=== PATIENT | female | born 1950 | race Caucasian/White ===

== ENCOUNTER 2017-05-20 16:42 | Emergency (ER) | payer MEDICARE, OTHER ==
--- NOTE | 2017-05-20 17:33 | ED ---
General Adult HPI - General Chief complaint: Skin/Abscess/Foreign Body Stated complaint: Insect Bite Time Seen by Provider: 05/20/17 16:54 Source: patient, RN notes reviewed Mode of arrival: ambulatory Limitations: no limitations - History of Present Illness Initial comments: 67 yo female presents to the ER with cc of rash to the neck. Patient states that she has had this for about 2 weeks now. Patient states she simply an insect bite there before. Patient states sometimes that it hurts. Patient states that there is mild itching but not very severe. Patient states that she hasn't had any fever chills with this. Patient states he just continues to be red so she thought that she should be evaluated. Patient denies any other symptoms at this time. Patient denies any recent fever, chills, shortness of breath, chest pain, back pain, abdominal pain, nausea vomiting, numbness or tingling, dysuria or hematuria, constipation or diarrhea, headaches or visual changes, or any other current symptoms. - Related Data Home Medications Medication Instructions Recorded Confirmed Atorvastatin [Lipitor] 40 mg PO DAILY 03/30/15 03/30/15 Furosemide [Lasix] 20 mg PO DAILY 03/30/15 03/30/15 Hydrochlorothiazide [Hydrodiuril] 25 mg PO DAILY 03/30/15 03/30/15 Levothyroxine Sodium [Synthroid] 50 mcg PO DAILY 03/30/15 03/30/15 Lisinopril [Zestril] 10 mg PO DAILY 03/30/15 03/30/15 Metoprolol Succinate [Toprol XL] 25 mg PO DAILY 03/30/15 03/30/15 Previous Rx's Medication Instructions Recorded Ciprofloxacin HCl [Cipro] 500 mg PO Q12HR #20 day 03/30/15 Ondansetron Odt [Zofran ODT] 4 mg PO Q8HR PRN #15 tab 03/30/15 Cephalexin [Keflex] 500 mg PO Q6HR #40 cap 05/20/17 Allergies Allergy/AdvReac Type Severity Reaction Status Date / Time No Known Allergies Allergy Verified 03/30/15 14:53 Review of Systems ROS Statement: Those systems with pertinent positive or pertinent negative responses have been documented in the HPI. ROS Other: All systems not noted in ROS Statement are negative. Past Medical History Past Medical History: COPD, Diabetes Mellitus, Hyperlipidemia, Hypertension, Osteoarthritis (OA) Additional Past Medical History / Comment(s): osteoporosis History of Any Multi-Drug Resistant Organisms: MRSA Date of last positivie culture/infection: 2004 MDRO Source:: vaginal area Past Surgical History: Orthopedic Surgery Past Psychological History: Anxiety, Depression Smoking Status: Former smoker Past Alcohol Use History: None Reported Past Drug Use History: None Reported General Exam Limitations: no limitations General appearance: alert, in no apparent distress Head exam: Present: atraumatic, normocephalic, normal inspection ENT exam: Present: normal exam, mucous membranes moist Neck exam: Present: other (Does appear to have a red raised rash to the anterior neck with multiple areas that is circular in nature. It does hesham.) Respiratory exam: Present: normal lung sounds bilaterally. Absent: respiratory distress, wheezes, rales, rhonchi, stridor Cardiovascular Exam: Present: regular rate, normal rhythm, normal heart sounds. Absent: systolic murmur, diastolic murmur, rubs, gallop, clicks Neurological exam: Present: alert, oriented X3 Psychiatric exam: Present: normal affect, normal mood Skin exam: Present: warm, dry, intact, normal color. Absent: rash Course Vital Signs 05/20/17 17:59 Temperature 98.0 F Pulse Rate 54 L Respiratory 18 Rate Blood Pressure 124/82 O2 Sat by Pulse 98 Oximetry Medical Decision Making - Medical Decision Making 67 presents with what appears to be possibly cellulitis. Some of the patient with antibiotics. We discussed continued follow-up with her doctor we discussed return parameters and all her questions. She stated that she understood and she ER in agreement with plan. This time she will be discharged home. Disposition Clinical Impression: Cellulitis of neck Disposition: HOME SELF-CARE Condition: Stable Instructions: Cellulitis (ED) Additional Instructions: Please use medication as discussed. Please follow up with family doctor if symptoms have not improved over the next two days. Please return to the emergency room if your symptoms increase or worsen or for any other concerns. Prescriptions: Cephalexin [Keflex] 500 mg PO Q6HR #40 cap Referrals: Joan Astorga DO [Primary Care Provider] - 1-2 days
[2017-05-20 18:00] VITALS: BP 124/82; PULSE 54; RESP 18; TEMP 98
== END 2017-05-20 18:00 | disposition home or self-care (01) ==
LOC: EC 16:42
DX: S10.96XA Insect bite of unspecified part of neck, initial encounter (principal); L03.221 Cellulitis of neck; E78.5 Hyperlipidemia, unspecified; I10 Essential (primary) hypertension; Z87.891 Personal history of nicotine dependence; Z79.899 Other long term (current) drug therapy; W57.XXXA Bitten or stung by nonvenomous insect and other nonvenomous arthropods, initial encounter
CPT/HCPCS: 99282

== ENCOUNTER 2018-02-20 10:02 | Day surgery (SDC) | payer MEDICARE, OTHER ==
[2018-02-17 16:42] VITALS: BMI 40.7
[~2018-02-20 10:02] MED LIST: LACTATED RINGERS 1,000 ML IV SCH
[2018-02-20 10:54] VITALS: TEMP 98.8
[2018-02-20] MEDS ORDERED: PROPOFOL 10 MG/ML 20 ML VIAL IV ONE (11:24)
[2018-02-20] MEDS ORDERED: LIDOCAINE 1% INJ 10MG/ML (20 ML MDV) ONE (11:24)
--- NOTE | 2018-02-20 11:44 | P.PCN ---
Date of Procedure: 02/20/18 Procedure(s) Performed: BRIEF HISTORY: Patient is a 68-year-old pleasant female, scheduled for an elective colonoscopy as a part of variation of change in bowel habits for the last several months duration. PROCEDURE PERFORMED: Colonoscopy. PREOPERATIVE DIAGNOSIS: Change in bowel habits. IV sedation per Anesthesia. PROCEDURE: After informed consent was obtained, the patient, was brought into the endoscopy unit. IV sedation was administered by Anesthesia under continuous monitoring. Digital rectal examination was normal. Initially the Olympus CF- 160 flexible video colonoscope was then inserted in the rectum, gradually advanced into the cecum without any difficulty. Careful examination was performed as the scope was gradually being withdrawn. Ileocecal valve and the appendiceal orifice were visualized and appeared normal. Prep was excellent. Mucosa of the cecum, ascending colon, transverse colon, descending colon, sigmoid colon, and rectum appeared normal. Scattered sigmoid diverticulosis seen. Retroflexion was performed in the rectum and no lesions were seen. The patient tolerated the procedure well. IMPRESSION: Normal-appearing colon from rectum to cecum with no evidence of colorectal neoplasia. Scattered sigmoid diverticulosis.. RECOMMENDATIONS: Findings of this examination were discussed with the patient as well as a family. She was advised to have a repeat screening colonoscopy in 10 years.
[2018-02-20 11:49] VITALS: RESP 16
[2018-02-20 12:05] VITALS: BP 142/51; PULSE 57
== END 2018-02-20 12:24 | disposition home or self-care (01) ==
LOC: ORWHC2ENDO 10:02
PROVIDERS: ATTEND Internal Medicine Gastroenterology
DX: K57.30 Diverticulosis of large intestine without perforation or abscess without bleeding (principal); I10 Essential (primary) hypertension; J44.9 Chronic obstructive pulmonary disease, unspecified; E07.9 Disorder of thyroid, unspecified; K21.9 Gastro-esophageal reflux disease without esophagitis; M19.90 Unspecified osteoarthritis, unspecified site; M81.0 Age-related osteoporosis without current pathological fracture; Z79.890 Hormone replacement therapy; Z79.899 Other long term (current) drug therapy; Z87.891 Personal history of nicotine dependence
CPT/HCPCS: 45378

== ENCOUNTER → 2021-04-10 | Outpatient (CLI) | payer MEDICARE, OTHER ==
[2021-04-10 19:21] LABS: African American GFR (CKD) 64.7 (60.0-200.0); Anion Gap 9.5 mmol/L (4.00-12.00); Calcium 9.3 mg/dL (8.7-10.3); Carbon Dioxide 31.5 mmol/L (21.6-31.8); Non-African American GFR(CKD) 55.8 (60.0-200.0); Potassium 5.4 mmol/L (3.5-5.5)
== END | disposition home or self-care (01) ==
LOC: LABWHC1 14:15
PROVIDERS: ATTEND Internal Medicine Interventional Cardiology
DX: R60.9 Edema, unspecified (principal)
CPT/HCPCS: 36415; 80048

== ENCOUNTER → 2022-10-22 | Outpatient (CLI) | payer MEDICARE, OTHER ==
--- NOTE | 2022-10-23 18:00 | MM ---
Reason for Exam: Screening (asymptomatic). Last mammogram was performed 1 year(s) and 4 month(s) ago. Patient History: Menarche at age 10. First Full-Term at age 18. Postmenopausal. Risk Values: Suzi 5 year model risk: 1.6%. NCI Lifetime model risk: 3.7%. Prior Study Comparison: 06/21/2021 Bilateral MG 3D screening mammo w/cad, [facility]. Tissue Density: The breast tissue is almost entirely fat. Findings: Analyzed By CAD. There is no suspicious group of microcalcifications or new suspicious mass in either breast. Overall Assessment: Negative, BI-RAD 1 Management: Screening Mammogram of both breasts in 1 year. 1. Patient should continue monthly self breast exams. 2. A clinical breast exam by your physician is recommended on an annual basis. 3. This exam should not preclude additional follow-up of suspicious palpable abnormalities. Electronically signed and approved by: Kathy Flanagan M.D. Radiologist
== END | disposition home or self-care (01) ==
LOC: RADMAMWWP 14:32
PROVIDERS: ATTEND Obstetrics & Gynecology
DX: Z12.31 Encounter for screening mammogram for malignant neoplasm of breast (principal); Z78.0 Asymptomatic menopausal state
CPT/HCPCS: 77063; 77067

== ENCOUNTER 2023-02-08 10:19 | Day surgery (SDC) | payer MEDICARE, OTHER ==
[2023-02-06 12:00] VITALS: BMI 42.5
[~2023-02-08 10:19] MED LIST changes: +LIDOCAINE 1% (10MG/ML) FOR IV START INTRADERMA PRN
[2023-02-08 10:55] VITALS: TEMP 97
[2023-02-08] MEDS ORDERED: LIDOCAINE 2% INJ 20 MG/ML (2 ML VIAL) ONE (11:45)
[2023-02-08] MEDS ORDERED: PROPOFOL 10 MG/ML 20 ML VIAL IV ONE (11:45)
--- NOTE | 2023-02-08 11:56 | P.PCN ---
Date of Procedure: 02/08/23 Procedure(s) Performed: BRIEF HISTORY: Patient is a 73-year-old, pleasant, white female scheduled for an upper endoscopy as a part of evaluation of intermittent dysphagia to solids for the last 1 year duration. She has 4 episodes so for and esophagus are Nexium 20 mg daily and since then the symptoms are significantly improved.. PROCEDURE PERFORMED: Esophagogastroduodenoscopy with biopsy. PREOPERATIVE DIAGNOSIS: Intermittent dysphagia to solids. IV sedation per anesthesia. PROCEDURE: After informed consent was obtained, the patient was brought into the endoscopy unit. IV sedation was administered by Anesthesia under continuous monitoring. Initially the Olympus GIF-140 video endoscope was inserted into the mouth. Esophagus intubated without any difficulty. It was gradually advanced into the stomach and duodenum and carefully examined. The bulb and the second part of the duodenum appeared normal. The scope at this time was withdrawn to the stomach, adequately insufflated with air, and upon careful examination, mucosa of the antrum, had linear areas of erythema consistent with gastritis and biopsies were done from this area. Mucosa of the body, cardia and the fundus appeared normal. The scope was then withdrawn into the esophagus. The GE junction was located at 39 cm from the incisors. Small sliding-type well hernia noted. The esophagus appeared normal. There were no erosions or ulcerations seen and the patient tolerated the procedure well. IMPRESSION: 1. Normal-appearing esophagus with no evidence of esophagitis or esophageal stricture. 2. Small hiatal hernia and mild antral gastritis. RECOMMENDATIONS: The findings of this examination were discussed with the patie nt as well as her family. She was advised to follow with the biopsy results. She will continue with Nexium 20 mg daily and follow antrum reflux measures..
[2023-02-08 12:47] VITALS: BP 154/77; PULSE 47; RESP 18
== END 2023-02-08 12:45 | disposition home or self-care (01) ==
LOC: ORWHC2ENDO 10:19
PROVIDERS: ATTEND Internal Medicine Gastroenterology
DX: K29.50 Unspecified chronic gastritis without bleeding (principal); K44.9 Diaphragmatic hernia without obstruction or gangrene; E78.5 Hyperlipidemia, unspecified; I11.0 Hypertensive heart disease with heart failure; I50.9 Heart failure, unspecified; J44.9 Chronic obstructive pulmonary disease, unspecified; G47.33 Obstructive sleep apnea (adult) (pediatric); E03.9 Hypothyroidism, unspecified; K21.9 Gastro-esophageal reflux disease without esophagitis; R73.03 Prediabetes; Z79.899 Other long term (current) drug therapy; Z79.891 Long term (current) use of opiate analgesic
CPT/HCPCS: 88305; 43239; J2704; J2001

== ENCOUNTER 2023-07-21 10:10 | Observation (INO) | payer MEDICARE, OTHER ==
[2023-07-21 11:30] LABS: Basophils % (A) 0 %; Eosinophils # (A) 0.2 k/uL (0-0.7); Eosinophils % (A) 2 %; HCT 41.8 % (34.0-46.0); HGB 13.5 gm/dL (11.4-16.0); Hypochromasia Slight; Lymphocytes # (A) 2.1 k/uL (1.0-4.8); Lymphocytes % (A) 23 %; MCH 29.4 pg (25.0-35.0); MCHC 32.2 g/dL (31.0-37.0); MCV 91.4 fL (80.0-100.0); Mean Platelet Volume 11.6; Monocytes # (A) 0.5 k/uL (0-1.0); Monocytes % (A) 5 %; Neutrophils % (A) 67 %; Platelet Count 157 k/uL (150-450); RBC 4.58 m/uL (3.80-5.40); RDW 14.1 % (11.5-15.5); WBC 9.1 k/uL (3.8-10.6)
[2023-07-21 11:47] LABS: African American GFR (CKD) >90 (>60 ml/min/1.73 sqM); Anion Gap 5 mmol/L; Blood Urea Nitrogen 15 mg/dL (7-17); Carbon Dioxide 28 mmol/L (22-30); Chloride 108 mmol/L (98-107); Glucose 97 mg/dL (74-99); Non-African American GFR(CKD) 84 (>60 ml/min/1.73 sqM); Potassium 4.5 mmol/L (3.5-5.1); Sodium 141 mmol/L (137-145)
[2023-07-21 11:48] LABS: INR 0.9 (<1.2); Partial Thromboplastin Time 22.3 sec (22.0-30.0); Prothrombin Time 9.6 sec (9.0-12.0)
[2023-07-21 11:54] LABS: NT-Pro-B-Type Natriuretic Pept 1310 pg/mL
--- NOTE | 2023-07-21 12:10 | XR ---
EXAMINATION TYPE: XR chest 2V DATE OF EXAM: 07/21/2023 11:53 AM COMPARISON: None TECHNIQUE: XR chest 2V Frontal and lateral views of the chest. CLINICAL INDICATION:Female, 73 years old with history of dyspnea; FINDINGS: Lungs/Pleura: There is no evidence of pleural effusion, focal consolidation, or pneumothorax. Pulmonary vascularity: Mild pulmonary vascular congestion. Heart/mediastinum: Cardiomediastinal silhouette is enlarged. Musculoskeletal: Multiple level degenerative disc disease changes seen throughout the spine. IMPRESSION: Cardiomegaly and mild pulmonary vascular congestion. Correlate with BNP for congestive heart failure.
--- NOTE | 2023-07-21 12:29 | ED ---
General Adult HPI - General Chief complaint: Shortness of Breath Stated complaint: DENIS Time Seen by Provider: 07/21/23 10:20 Source: patient Mode of arrival: ambulatory Limitations: no limitations - History of Present Illness Initial comments: Dictation was produced using [employer] dictation software. please excuse any grammatical, word or spelling errors. Chief Complaint: 73-year-old female with dyspnea History of Present Illness: 73-year-old female she was recently diagnosed with cellulitis. She went to go see Dr. Acosta who prescribed her 3 times a day dosing of Keflex. She completed the Keflex. States that at around day 7 out 10 she started to develop dyspnea. States that the dizziness is intermittent. Denies any cough. Denies any chest pain. No history of asthma or COPD. She does have a history of heart failure. It has a fever constitutional symptoms. The ROS documented in this emergency department record has been reviewed and confirmed by me. Those systems with pertinent positive or negative responses joseph ve been documented in the HPI. All other systems are other negative and/or noncontributory. - Related Data Home Medications Medication Instructions Recorded Confirmed Atorvastatin [Lipitor] 40 mg PO DAILY 03/30/15 02/08/23 Levothyroxine Sodium [Synthroid] 75 mcg PO QAM 03/30/15 02/08/23 lisinopriL [Zestril] 10 mg PO QAM 03/30/15 02/08/23 Cyclobenzaprine [Flexeril] 10 mg PO HS PRN 02/17/18 02/08/23 Metoprolol Tartrate [Lopressor] 25 mg PO QAM 02/17/18 02/08/23 Cetirizine HCl [Zyrtec] 10 mg PO DAILY 02/06/23 02/08/23 Esomeprazole Magnesium [NexIUM 20 mg PO DAILY 02/06/23 02/08/23 24Hr] Loperamide [Imodium] 2 mg PO Q2D 02/06/23 02/08/23 Allergies Allergy/AdvReac Type Severity Reaction Status Date / Time No Known Allergies Allergy Verified 07/21/23 10:15 Review of Systems ROS Statement: Those systems with pertinent positive or pertinent negative responses have been documented in the HPI. ROS Other: All systems not noted in ROS Statement are negative. Past Medical History Past Medical History: Heart Failure, COPD, GERD/Reflux, Hyperlipidemia, Hypertension, Osteoarthritis (OA), Thyroid Disorder Additional Past Medical History / Comment(s): Osteoporosis, FEELS LIKE FOOD IS GETTING STUCK AND IT MAKES IT HARD TO BREATHE, SEASONAL ALLERGIES, N/V History of Any Multi-Drug Resistant Organisms: None Reported Date of last positivie culture/infection: 2004 MDRO Source:: vaginal area Past Surgical History: Joint Replacement Additional Past Surgical History / Comment(s): rt knee replacement, COLONOSCOPY, Past Anesthesia/Blood Transfusion Reactions: No Reported Reaction Past Psychological History: Anxiety, Depression Smoking Status: Former smoker Past Alcohol Use History: None Reported Past Drug Use History: None Reported - Past Family History Mother Family Medical History: No Reported History General Exam - General Exam Comments Initial Comments: PHYSICAL EXAM: General Impression: Alert and oriented x3, not in acute distress HEENT: Normocephalic atraumatic, extra-ocular movements intact, pupils equal and reactive to light bilaterally, mucous membranes moist. Cardiovascular: Heart regular rate and rhythm Chest: Able to complete full sentences, no retractions, no tachypnea, clear to auscultation bilaterally Abdomen: abdomen soft, non-tender, non-distended, no organomegaly Musculoskeletal: Pulses present and equal in all extremities, no peripheral rochelle ma Motor: no focal deficits noted Neurological: CN II-XII grossly intact, no focal motor or sensory deficits noted Skin: Intact with no visualized rashes Psych: Normal affect and mood Limitations: no limitations Course Vital Signs 07/21/23 07/21/23 07/21/23 10:13 10:42 11:00 Temperature 98.5 F Pulse Rate 62 55 L 79 Respiratory 32 H 24 20 Rate Blood Pressure 169/92 186/94 O2 Sat by Pulse 98 96 95 Oximetry 07/21/23 07/21/23 07/21/23 11:30 12:00 12:30 Temperature Pulse Rate 63 54 L 51 L Respiratory 15 18 18 Rate Blood Pressure 204/100 184/94 178/86 O2 Sat by Pulse 93 L 94 L 94 L Oximetry 07/21/23 13:00 Temperature Pulse Rate Respiratory Rate Blood Pressure 171/95 O2 Sat by Pulse Oximetry EKG Findings - EKG Comments: EKG Findings:: My EKG interpretation: Ventricular rate 56, sinus bradycardia,. 143, QRS 180, QTc 452. No AL prolongation, no QTC prolongation, no ST or T-wave changes noted. No old EKG for comparison. Overall, this EKG is unremarkable Medical Decision Making - Medical Decision Making Was pt. sent in by a medical professional or institution (SILVINO Jung, SHOT CORE DRILL OPERATOR, urgent care, hospital, or care home...) When possible be specific @ -No Did you speak to anyone other than the patient for history (EMS, parent, family, police, friend...)? What history was obtained from this source @ -No Did you review nursing and triage notes (agree or disagree)? Why? @ -I reviewed and agree with nursing and triage notes Were old charts reviewed (outside hosp., previous admission, EMS record, old EKG, old radiological studies, urgent care reports/EKG's, care home records)? Report findings @ -No old charts were reviewed Differential Diagnosis (chest pain, altered mental status, abdominal pain women, abdominal pain men, vaginal bleeding, musculoskeletal, weakness, fever, dyspnea, syncope, headache, dizziness, GI bleed, back pain, seizure, CVA, palpatations, mental health)? @ -Differential Dyspnea: Coronary syndrome, arrhythmia, tamponade, asthma, COPD, pulmonary embolism, pneumonia, pneumothorax, pulmonary effusion, anaphylaxis, diabetic ketoacidosis, flailed chest, pulmonary contusion, diaphragmatic rupture, anemia, neuromuscular, this is not meant to be an all-inclusive list. EKG interpreted by me (3pts min.). @ -As above X-rays interpreted by me (1pt min.). @ -Chest x-ray shows pulmonary vascular congestion CT interpreted by me (1pt min.). @ -Computed tomography scan of the chest with angiography shows no pulmonary embolism U/S interpreted by me (1pt. min.). @ -None done What testing was considered but not performed or refused? (CT, X-rays, U/S, labs)? Why? @ -None What meds were considered but not given or refused? Why? @ -None Did you discuss the management of the patient with other professionals (professionals i.e. SILVINO Jung, SHOT CORE DRILL OPERATOR, lab, RT, psych nurse, social services technician, plating equipment tender, teacher, [place] police officer, rehabilitation caseworker)? Give summary @ -Discussed with hospitalist for admission Was smoking cessation discussed for >3mins.? @ -No Was critical care preformed (if so, how long)? @ -No Were there social determinants of health that impacted care today? How? (Homelessness, low income, unemployed, alcoholism, drug addiction, transportatio n, low edu. Level, literacy, decrease access to med. care, detention, rehab)? @ -No Was there de-escalation of care discussed even if they declined (Discuss DNR or withdrawal of care, Hospice)? DNR status @ -No What co-morbidities impacted this encounter? (DM, HTN, Smoking, COPD, CAD, Cancer, CVA, ARF, Chemo, Hep., AIDS, mental health diagnosis, sleep apnea, morbid obesity)? @ -None Was patient admitted / discharged? Hospital course, mention meds given and route, prescriptions, significant lab abnormalities, going to OR and other pertinent info. @ -73-year-old female presents to the emergency department for dyspnea. Vital signs upon arrival are within acceptable limits. Patient believes that her symptoms are secondary to Keflex use. Patient not showing signs of respiratory distress. Laboratory evaluation obtained. D-dimer elevated 0.05. No pulmonary embolism seen on imaging. Labs otherwise within acceptable limits. Brain natruretic peptide elevated. Imaging studies to suggest that patient having signs of heart failure. Patient reevaluated at bedside at 150. She is within stable medical condition. Patient given Lasix. She will be admitted to observation with cardiology consultation. Undiagnosed new problem with uncertain prognosis? @ -No Drug Therapy requiring intensive monitoring for toxicity (Heparin, Nitro, Insulin, Cardizem)? @ -No Were any procedures done? @ -No Diagnosis/symptom? Acute, or Chronic, or Acute on Chronic? Uncomplicated (without systemic symptoms) or Complicated (systemic symptoms)? @ -Heart failure Side effects of treatment? @ -No Exacerbation, Progression, or Severe Exacerbation? @ -No Poses a threat to life or bodily function? How? (Chest pain, [place], [place], pneumonia, PE, COPD, DKA, ARF, appy, cholecystitis, CVA, Diverticulitis, Homicidal, Suicidal, threat to staff... and all critical care pts) @ -yes - Lab Data Result diagrams: 07/21/23 11:18 07/21/23 11:18 Lab Results 07/21/23 07/21/23 07/21/23 Range/Units 11:18 11:18 11:18 WBC 9.1 (3.8-10.6) k/uL RBC 4.58 (3.80-5.40) m/uL Hgb 13.5 (11.4-16.0) gm/dL Hct 41.8 (34.0-46.0) % MCV 91.4 (80.0-100.0) fL MCH 29.4 (25.0-35.0) pg MCHC 32.2 (31.0-37.0) g/dL RDW 14.1 (11.5-15.5) % Plt Count 157 (150-450) k/uL MPV 11.6 Neutrophils % 67 % Lymphocytes % 23 % Monocytes % 5 % Eosinophils % 2 % Basophils % 0 % Neutrophils # 6.0 (1.3-7.7) k/uL Lymphocytes # 2.1 (1.0-4.8) k/uL Monocytes # 0.5 (0-1.0) k/uL Eosinophils # 0.2 (0-0.7) k/uL Basophils # 0.0 (0-0.2) k/uL Hypochromasia Slight PT 9.6 (9.0-12.0) sec INR 0.9 (<1.2) APTT 22.3 (22.0-30.0) sec D-Dimer 2.05 H (<0.60) mg/L FEU Sodium 141 (137-145) mmol/L Potassium 4.5 (3.5-5.1) mmol/L Chloride 108 H (98-107) mmol/L Carbon Dioxide 28 (22-30) mmol/L Anion Gap 5 mmol/L BUN 15 (7-17) mg/dL Creatinine 0.71 (0.52-1.04) mg/dL Est GFR (CKD-EPI)AfAm >90 (>60 ml/min/1.73 sqM) Est GFR (CKD-EPI)NonAf 84 (>60 ml/min/1.73 sqM) Glucose 97 (74-99) mg/dL Plasma Lactic Acid Yasmany (0.7-2.0) mmol/L Calcium 9.0 (8.4-10.2) mg/dL Troponin I (0.000-0.034) ng/mL NT-Pro-B Natriuret Pep 1310 pg/mL Influenza Type A (PCR) (Not Detectd) Influenza Type B (PCR) (Not Detectd) RSV (PCR) (Not Detectd) SARS-CoV-2 (PCR) (Not Detectd) 07/21/23 07/21/23 07/21/23 Range/Units 11:18 11:18 11:28 WBC (3.8-10.6) k/uL RBC (3.80-5.40) m/uL Hgb (11.4-16.0) gm/dL Hct (34.0-46.0) % MCV (80.0-100.0) fL MCH (25.0-35.0) pg MCHC (31.0-37.0) g/dL RDW (11.5-15.5) % Plt Count (150-450) k/uL MPV Neutrophils % % Lymphocytes % % Monocytes % % Eosinophils % % Basophils % % Neutrophils # (1.3-7.7) k/uL Lymphocytes # (1.0-4.8) k/uL Monocytes # (0-1.0) k/uL Eosinophils # (0-0.7) k/uL Basophils # (0-0.2) k/uL Hypochromasia PT (9.0-12.0) sec INR (<1.2) APTT (22.0-30.0) sec D-Dimer (<0.60) mg/L FEU Sodium (137-145) mmol/L Potassium (3.5-5.1) mmol/L Chloride (98-107) mmol/L Carbon Dioxide (22-30) mmol/L Anion Gap mmol/L BUN (7-17) mg/dL Creatinine (0.52-1.04) mg/dL Est GFR (CKD-EPI)AfAm (>60 ml/min/1.73 sqM) Est GFR (CKD-EPI)NonAf (>60 ml/min/1.73 sqM) Glucose (74-99) mg/dL Plasma Lactic Acid Yasmany 2.3 H* (0.7-2.0) mmol/L Calcium (8.4-10.2) mg/dL Troponin I <0.012 (0.000-0.034) ng/mL NT-Pro-B Natriuret Pep pg/mL Influenza Type A (PCR) Not Detected (Not Detectd) Influenza Type B (PCR) Not Detected (Not Detectd) RSV (PCR) Not Detected (Not Detectd) SARS-CoV-2 (PCR) Not Detected (Not Detectd) Disposition Clinical Impression: Heart failure Disposition: ADMITTED IP TO THIS HOSP Condition: Fair Referrals: Joan Astorga DO [Primary Care Provider] - 1-2 days Decision Time: 13:52
--- NOTE | 2023-07-21 13:19 | CT ---
EXAMINATION TYPE: CT angio chest CT DLP: 799 mGycm, Automated exposure control for dose reduction was used. DATE OF EXAM: 07/21/2023 1:10 PM COMPARISON: CT chest 04/05/2011, chest radiograph 07/21/2023 CLINICAL INDICATION:Female, 73 years old with history of positive dimer; Difficulty breathing. TECHNIQUE/CONTRAST: CTA scan of the thorax is performed with IV Contrast, patient injected with 73ml mL of Isovue 370, pu lmonary embolism protocol. MIP images are created and reviewed. FINDINGS: Pulmonary Artery: There is no evidence for a filling defect within the pulmonary vasculature to sugge st acute pulmonary embolism. The pulmonary artery is of normal size. Lungs/Pleura: No pneumothorax. Trace bilateral pleural effusions. Subtle bilateral lower lobe groundg lass opacities. Intralobular septal thickening demonstrated in the bilateral lower lobes. No focal co nsolidation. Airway: Large airways are patent. Heart: Mildly enlarged. No pericardial effusion. Mild coronary arterial calcifications. Vasculature: No evidence of aortic aneurysm. Mediastinum: Few mildly prominent mediastinal lymph nodes. Musculoskeletal: Mild degenerative disc disease changes are present throughout the thoracolumbar spin e. Findings compatible with DISH. No acute osseous abnormality. Soft Tissues: Unremarkable. Lower neck: No significant findings. Upper Abdomen: Small hiatal hernia. IMPRESSION: 1. No evidence of pulmonary embolism. 2. Trace bilateral pleural effusions with cardiomegaly and interlobular thickening suggesting CHF exa cerbation. 3. Subtle bilateral lower lobe groundglass opacities likely representing minimal pulmonary edema vers us less likely atypical pneumonia.
[2023-07-21] MEDS ORDERED: NALOXONE 0.4 MG/ML 1 ML VIAL IV PRN (13:48)
[2023-07-21] MEDS ORDERED: FUROSEMIDE 10 MG/ML 4 ML VIAL IV STA (13:49)
[2023-07-21] MEDS ORDERED: ACETAMINOPHEN TAB 500 MG TAB PO PRN (16:05)
[2023-07-21] MEDS: SODIUM CHLORIDE 0.9% 1,000 ML IV SCH (16:08)
[2023-07-21] MEDS: lisinopriL 10 MG TAB PO SCH (16:47)
[2023-07-21] MEDS: LEVOTHYROXINE 75 MCG TAB PO SCH (16:47)
[2023-07-21] MEDS: METOPROLOL TARTRATE 25 MG TAB PO SCH (21:43)
[2023-07-22] MEDS: LEVOTHYROXINE 75 MCG TAB PO SCH (06:20)
[2023-07-22] MEDS: LORATADINE 10 MG TAB PO SCH (08:21)
[2023-07-22] MEDS: lisinopriL 10 MG TAB PO SCH ×2 (08:53→20:35)
[2023-07-22] MEDS: ATORVASTATIN 40 MG TAB PO SCH (08:53)
--- NOTE | 2023-07-22 09:32 | P.CRDCN ---
History of Present Illness Consult date: 07/22/23 Requesting physician: Meggan Almazan Reason for Consult (text): suspect heart failure Chief complaint: shortness of breath History of present illness: This is a pleasant 73-year-old female patient who previously followed with Dr. VC Wells and most recently with Dr. Broderick however has not been seen recently. She has a history of hypertension, prior history of heart failure that she said was told to be due to hypertension and cardiac catheterization done about 14 years ago at which time she was told to have no CAD according to the patient. She has chronic venous stasis and chronic lower extremity edema she's been following with Dr. Acosta in this regard. Recently treated for right lower leg cellulitis. She's recently been under an increased amount of stress due to the of her 10-year-old grandson. On July 08 she began noticing episodes of dyspnea on exertion and shortness of breath when she was feeling more stressed. Since that time the episodes have been progressively more frequent. She woke up yesterday morning at about 5 AM and was unable to catch her breath. She had her bring her to the emergency department. Chest x-ray showed cardiomegaly and mild pulmonary vascular congestion, correlate with BNP for congestive heart failure. D-dimer was elevated and a CT was done of the chest that showed no evidence for PE. She was given one dose of IV Lasix. NT proBNP was 1310 which could be underestimated due to patient's weight. Upon examination she is sitting up at the side of the bed. She is overall feeling better but continues to have some difficulty breathing when she is feeling anxious. Continues to have lower extremity edema, mild. Denies any chest discomfort, palpitations or dizziness. She was having some mild orthopnea at home. She is currently on metoprolol 25 mg by mouth twice a day as a home medication however she's been bradycardic with heart rate in the low 40s. Past Medical History Past Medical History: Heart Failure, COPD, GERD/Reflux, Hyperlipidemia, Hypertension, Osteoarthritis (OA), Thyroid Disorder Additional Past Medical History / Comment(s): Osteoporosis, FEELS LIKE FOOD IS GETTING STUCK AND IT MAKES IT HARD TO BREATHE, SEASONAL ALLERGIES, N/V History of Any Multi-Drug Resistant Organisms: None Reported Date of last positivie culture/infection: 2004 MDRO Source:: vaginal area Past Surgical History: Joint Replacement Additional Past Surgical History / Comment(s): rt knee replacement, COLONOSCOPY, Past Anesthesia/Blood Transfusion Reactions: No Reported Reaction Past Psychological History: Anxiety, Depression Smoking Status: Former smoker Past Alcohol Use History: None Reported Additional Past Alcohol Use History / Comment(s): quit smoking April,smoked 35 yrs 1-2ppd Past Drug Use History: None Reported - Past Family History Mother Family Medical History: No Reported History Medications and Allergies Home Medications Medication Instructions Recorded Confirmed Type Atorvastatin [Lipitor] 40 mg PO DAILY 03/30/15 07/21/23 History Levothyroxine Sodium [Synthroid] 75 mcg PO DAILY 03/30/15 07/21/23 History lisinopriL [Zestril] 10 mg PO DAILY 03/30/15 07/21/23 History Metoprolol Tartrate [Lopressor] 25 mg PO BID 02/17/18 07/21/23 History Cetirizine HCl [Zyrtec] 10 mg PO DAILY 02/06/23 07/21/23 History Acetaminophen [Tylenol Arthritis] 1,300 mg PO Q6H PRN 07/21/23 07/21/23 History Allergies Allergy/AdvReac Type Severity Reaction Status Date / Time No Known Allergies Allergy Verified 07/21/23 13:57 Physical Exam Vitals: Vital Signs Temp Pulse Pulse Resp BP BP Pulse Ox 07/22/23 07:00 97.9 F 43 L 20 158/75 95 07/22/23 01:27 98.5 F 54 L 16 146/69 95 07/21/23 19:14 97.8 F 58 L 16 162/69 96 07/21/23 16:32 98.3 F 52 L 16 152/67 96 07/21/23 15:04 52 L 18 154/84 94 L 07/21/23 14:30 57 L 20 189/90 98 07/21/23 14:00 58 L 12 181/96 98 07/21/23 13:00 171/95 07/21/23 12:30 51 L 18 178/86 94 L 07/21/23 12:00 54 L 18 184/94 94 L 07/21/23 11:30 63 15 204/100 93 L 07/21/23 11:00 79 20 186/94 95 07/21/23 10:42 55 L 24 96 07/21/23 10:13 98.5 F 62 32 H 169/92 98 Intake and Output 07/21/23 07/22/23 07/22/23 22:59 06:59 14:59 Intake Total 591 Balance 591 Intake: Oral 591 Other: # Voids 2 1 PHYSICAL EXAMINATION: This is a 73-year-old female in no apparent distress at the time of my examination. HEENT: Head is atraumatic, normocephalic. Pupils are equal, round. Sclerae anicteric. Conjunctivae are clear. Mucous membranes of the mouth are moist. Neck is supple. There is no elevated jugular venous pressure. No carotid bruit is heard. CHEST EXAMINATION: Clear to auscultation bilaterally. No wheezes rales or rhonchi. Respirations even and nonlabored. HEART EXAMINATION: Heart regular, positive S1 and S2. No S3. No S4. No clicks, rubs or murmurs. ABDOMEN: Soft, obese, nontender. Bowel sounds are heard. No organomegaly noted. EXTREMITIES: 2+ peripheral pulses with evidence of 1+ peripheral edema and chronic skin changes noted on the right lower extremity and no calf tenderness noted. NEUROLOGIC EXAMINATION: Patient is awake, alert and oriented x3. Results 07/22/23 12:35 07/21/23 11:18 Cardiac Enzymes 07/21/23 Range/Units 11:18 Troponin I <0.012 (0.000-0.034) ng/mL Coagulation 07/21/23 Range/Units 11:18 PT 9.6 (9.0-12.0) sec APTT 22.3 (22.0-30.0) sec CBC 07/21/23 Range/Units 11:18 WBC 9.1 (3.8-10.6) k/uL RBC 4.58 (3.80-5.40) m/uL Hgb 13.5 (11.4-16.0) gm/dL Hct 41.8 (34.0-46.0) % Plt Count 157 (150-450) k/uL Comprehensive Metabolic Panel 07/21/23 Range/Units 11:18 Sodium 141 (137-145) mmol/L Potassium 4.5 (3.5-5.1) mmol/L Chloride 108 H (98-107) mmol/L Carbon Dioxide 28 (22-30) mmol/L BUN 15 (7-17) mg/dL Creatinine 0.71 (0.52-1.04) mg/dL Glucose 97 (74-99) mg/dL Calcium 9.0 (8.4-10.2) mg/dL Current Medications Generic Name Dose Route Start Last Admin Trade Name Freq PRN Reason Stop Dose Admin Acetaminophen 1,000 mg 07/21/23 16:05 Acetaminophen Tab 500 Mg Tab PO Q6H PRN Fever and/ or Pain Atorvastatin Calcium 40 mg 07/22/23 09:00 07/22/23 08:53 Atorvastatin 40 Mg Tab PO 40 mg DAILY AHMET Administration Sodium Chloride 1,000 mls @ 20 mls/hr 07/21/23 14:00 07/21/23 16:08 Saline 0.9% IV Not Given .Q24H AHMET Levothyroxine Sodium 75 mcg 07/21/23 16:15 07/22/23 06:20 Levothyroxine 75 Mcg Tab PO 75 mcg 0630 AHMET Administration Lisinopril 10 mg 07/21/23 16:15 07/22/23 08:53 Lisinopril 10 Mg Tab PO 10 mg DAILY AHMET Administration Loratadine 10 mg 07/22/23 09:00 07/22/23 08:21 Loratadine 10 Mg Tab PO Not Given DAILY AHMET Metoprolol Tartrate 25 mg 07/21/23 21:00 07/21/23 21:43 Metoprolol Tartrate 25 Mg Tab PO 25 mg BID AHMET Administration Naloxone HCl 0.2 mg 07/21/23 13:48 Naloxone 0.4 Mg/Ml 1 Ml Vial IV Q2M PRN Opioid Reversal Intake and Output 07/21/23 07/22/23 07/22/23 22:59 06:59 14:59 Intake Total 591 Balance 591 Intake: Oral 591 Other: # Voids 2 1 07/21/23 11:18 07/21/23 11:18 Assessment and Plan Assessment: #1 symptom for progressively worsening dyspnea on exertion and mild orthopnea, BNP 1310 which could be underestimated due to patient's weight, likely acute exacerbation of chronic heart failure, likely with preserved EF however no recent echocardiogram is available at this time. #2 hypertension #3 chronic venous insufficiency #4 bradycardia #5 acute grief Plan: From clinical biochemist perspective we'll obtain a 2-D echo with Doppler study. We'll add oral diuretics. Hold metoprolol. Increase Lisinopril. We will continue to follow the patient and provide further recommendations accordingly. CRIMINAL INTELLIGENCE ANALYST note has been reviewed, I agree with a documented findings and plan of care. Patient was seen and examined.
[2023-07-22] MEDS: METOPROLOL TARTRATE 25 MG TAB PO SCH (10:25)
[2023-07-22] MEDS: PANTOPRAZOLE 40 MG TABLET PO SCH (12:57)
[2023-07-22] MEDS: SODIUM CHLORIDE 0.9% 1,000 ML IV SCH (12:57)
[2023-07-22] MEDS: ASPIRIN 81 MG PO SCH (12:57)
[2023-07-22 12:58] LABS: Basophils % (A) 0 %; Eosinophils # (A) 0.1 k/uL (0-0.7); Eosinophils % (A) 1 %; HCT 40.5 % (34.0-46.0); Lymphocytes # (A) 1.8 k/uL (1.0-4.8); Lymphocytes % (A) 21 %; MCHC 32.2 g/dL (31.0-37.0); MCV 90.2 fL (80.0-100.0); Mean Platelet Volume 10.6; Monocytes # (A) 0.6 k/uL (0-1.0); Monocytes % (A) 7 %; Neutrophils # (A) 5.6 k/uL (1.3-7.7); Neutrophils % (A) 68 %; Platelet Count 156 k/uL (150-450); RBC 4.49 m/uL (3.80-5.40); RDW 13.9 % (11.5-15.5); WBC 8.3 k/uL (3.8-10.6)
--- NOTE | 2023-07-22 13:16 | P.HPIM ---
History of Present Illness H&P Date: 07/22/23 History of present illness; patient is a 73-year-old lady with past medical hist ory significant for hypothyroidism, hypertension, hyperlipidemia who presented to the ER because of shortness of breath. Patient stated that she was just diagnosed with cellulitis and completed course of antibiotics. Patient stated for the last few days she's been noticing shortness of breath that has been intermittent, present on exertion. Denies any chest pain associated with shortness of breath, denies any palpitations. Patient complaining of lower extremity swelling as well. Patient complaining of orthopnea. No complaints of PND. Because of shortness of breath, patient came to the ER Initial lab work done in the ER showed WBC 9.1, hemoglobin 13.5, platelet count 137, sodium 141, potassium 4.5, BUN 50, creatinine 0.71, troponin 0.012, proBNP 1310 EKG done in the ER ventricle rate 58, no ST segment elevation or T-wave inversion seen Chest x-ray done in the ER showed cardiomegaly and mild pulmonary vascular congestion CTA chest done showed no PE, showed trace bilateral pleural effusion with cardiomegaly and interlobular thickening suggestive of CHF exacerbation Patient was admitted to medicine service REVIEW OF SYSTEMS: CONSTITUTIONAL: No fever, no malaise, no fatigue. HEENT: No recent visual problems or hearing problems. Denied any sore throat. CARDIOVASCULAR: As mentioned in HPI PULMONARY: As mentioned in HPI GASTROINTESTINAL: No diarrhea, no nausea, no vomiting, no abdominal pain. NEUROLOGICAL: No headaches, no weakness, no numbness. HEMATOLOGICAL: Denies any bleeding or petechiae. GENITOURINARY: Denies any burning micturition, frequency, or urgency. MUSCULOSKELETAL/RHEUMATOLOGICAL: Denies any joint pain, swelling, or any muscle pain. ENDOCRINE: Denies any polyuria or polydipsia. The rest of the 14-point review of systems is negative. PHYSICAL EXAMINATION: GENERAL: The patient is alert and oriented x3, not in any acute distress. Well developed, well nourished. HEENT: Pupils are round and equally reacting to light. EOMI. No scleral icterus. No conjunctival pallor. Normocephalic, atraumatic. No pharyngeal erythema. No thyromegaly. CARDIOVASCULAR: S1 and S2 present. No murmurs, rubs, or gallops. PULMONARY: Chest is clear to auscultation, no wheezing or crackles. ABDOMEN: Soft, nontender, nondistended, normoactive bowel sounds. No palpable organomegaly. MUSCULOSKELETAL: No joint swelling or deformity. EXTREMITIES: 1+ pitting edema lower extremities bilaterally. Chronic venous stasis changes of right lower extremity NEUROLOGICAL: Gross neurological examination did not reveal any focal deficits. SKIN: No rashes. Assessment and plan Acute diastolic heart failure Hypertension Chronic renal insufficiency Bradycardia Hyperlipidemia Hypothyroidism Monitor vital signs Monitor CBC Monitor CMP Continue telemetry monitoring Strict I's and O's Daily weights Ordered 2-D echo Hold beta blockers for now Continue Lasix Cardiology consulted Resume home meds Labs and medication were reviewed.. Continue same treatment. Continue with symptomatic treatment. Resume home medication. Monitor labs and vitals. DVT and GI prophylaxis. Further recommendations as per clinical course of the patient Dictation was produced using [employer] dictation software. please excuse any grammatical, word or spelling errors. Past Medical History Past Medical History: Heart Failure, COPD, GERD/Reflux, Hyperlipidemia, Hypertension, Osteoarthritis (OA), Thyroid Disorder Additional Past Medical History / Comment(s): Osteoporosis, FEELS LIKE FOOD IS GETTING STUCK AND IT MAKES IT HARD TO BREATHE, SEASONAL ALLERGIES, N/V History of Any Multi-Drug Resistant Organisms: None Reported Date of last positivie culture/infection: 2004 MDRO Source:: vaginal area Past Surgical History: Joint Replacement Additional Past Surgical History / Comment(s): rt knee replacement, COLONOSCOPY, Past Anesthesia/Blood Transfusion Reactions: No Reported Reaction Past Psychological History: Anxiety, Depression Smoking Status: Former smoker Past Alcohol Use History: None Reported Additional Past Alcohol Use History / Comment(s): quit smoking April,smoked 35 yrs 1-2ppd Past Drug Use History: None Reported - Past Family History Mother Family Medical History: No Reported History Medications and Allergies Home Medications Medication Instructions Recorded Confirmed Type Atorvastatin [Lipitor] 40 mg PO DAILY 03/30/15 07/21/23 History Levothyroxine Sodium [Synthroid] 75 mcg PO DAILY 03/30/15 07/21/23 History lisinopriL [Zestril] 10 mg PO DAILY 03/30/15 07/21/23 History Metoprolol Tartrate [Lopressor] 25 mg PO BID 02/17/18 07/21/23 History Cetirizine HCl [Zyrtec] 10 mg PO DAILY 02/06/23 07/21/23 History Acetaminophen [Tylenol Arthritis] 1,300 mg PO Q6H PRN 07/21/23 07/21/23 History Allergies Allergy/AdvReac Type Severity Reaction Status Date / Time No Known Allergies Allergy Verified 07/21/23 13:57 Physical Exam Vitals: Vital Signs Temp Pulse Pulse Resp BP BP Pulse Ox 07/22/23 07:00 97.9 F 43 L 20 158/75 95 07/22/23 01:27 98.5 F 54 L 16 146/69 95 07/21/23 19:14 97.8 F 58 L 16 162/69 96 07/21/23 16:32 98.3 F 52 L 16 152/67 96 07/21/23 15:04 52 L 18 154/84 94 L 07/21/23 14:30 57 L 20 189/90 98 07/21/23 14:00 58 L 12 181/96 98 07/21/23 13:00 171/95 07/21/23 12:30 51 L 18 178/86 94 L 07/21/23 12:00 54 L 18 184/94 94 L 07/21/23 11:30 63 15 204/100 93 L 07/21/23 11:00 79 20 186/94 95 Intake and Output 07/21/23 07/22/23 07/22/23 22:59 06:59 14:59 Intake Total 591 120 Balance 591 120 Intake: Oral 591 120 Other: # Voids 2 1 1 Results CBC & Chem 7: 07/22/23 12:35 07/21/23 11:18 Labs: Abnormal Lab Results - Last 24 Hours (Table) 07/21/23 07/21/23 07/21/23 Range/Units 11:18 11:18 11:18 D-Dimer 2.05 H (<0.60) mg/L FEU Chloride 108 H (98-107) mmol/L Plasma Lactic Acid Yasmany 2.3 H* (0.7-2.0) mmol/L Thrombosis Risk Factor Assmnt - Choose All That Apply Each Risk Factor Represents 3 Points: Age 75 years or older Thrombosis Risk Factor Assessment Total Risk Factor Score: 3 Thrombosis Risk Factor Assessment Level: Moderate Risk
[2023-07-22] MEDS: FUROSEMIDE 40 MG TAB PO SCH (13:21)
[2023-07-22 13:23] LABS: ALT 26 U/L (4-34); AST 28 U/L (14-36); African American GFR (CKD) 89 (>60 ml/min/1.73 sqM); Albumin 3.6 g/dL (3.5-5.0); Albumin/Globulin Ratio 1.6; Alkaline Phosphatase 99 U/L (38-126); Anion Gap 1 mmol/L; Blood Urea Nitrogen 16 mg/dL (7-17); Calcium 8.9 mg/dL (8.4-10.2); Carbon Dioxide 33 mmol/L (22-30); Chloride 107 mmol/L (98-107); Globulin 2.2 g/dL; Glucose 84 mg/dL (74-99); Non-African American GFR(CKD) 77 (>60 ml/min/1.73 sqM); Sodium 141 mmol/L (137-145); Total Protein 5.8 g/dL (6.3-8.2)
[2023-07-22] MEDS: LOPERAMIDE 2 MG CAP PO PRN ×2 (15:49→16:06)
[2023-07-23] MEDS: PANTOPRAZOLE 40 MG TABLET PO SCH (05:47)
[2023-07-23] MEDS: LEVOTHYROXINE 75 MCG TAB PO SCH (05:47)
[2023-07-23 06:32] LABS: African American GFR (CKD) 89 (>60 ml/min/1.73 sqM); Anion Gap 5 mmol/L; Blood Urea Nitrogen 15 mg/dL (7-17); Calcium 8.6 mg/dL (8.4-10.2); Carbon Dioxide 30 mmol/L (22-30); Chloride 104 mmol/L (98-107); Glucose 95 mg/dL (74-99); Non-African American GFR(CKD) 77 (>60 ml/min/1.73 sqM); Sodium 139 mmol/L (137-145)
[2023-07-23] MEDS: ASPIRIN 81 MG PO SCH (07:59)
[2023-07-23] MEDS: ATORVASTATIN 40 MG TAB PO SCH (07:59)
[2023-07-23] MEDS: lisinopriL 10 MG TAB PO SCH ×2 (07:59→20:11)
[2023-07-23] MEDS: LORATADINE 10 MG TAB PO SCH (07:59)
[2023-07-23] MEDS: FUROSEMIDE 40 MG TAB PO SCH (07:59)
[2023-07-23] MEDS: METOPROLOL SUCCINATE (ER) 25 MG TAB.ER.24H PO SCH (10:25)
--- NOTE | 2023-07-23 11:37 | P.PN ---
Subjective Progress Note Date: 07/23/23 SUBJECTIVE: Patient is seen and examined at bedside the same. She reports that her shortness of breath is much better since time of admission. Her pulse rate is ranging from 70-80 beats on telemetry with occasional PVCs. Her systolic blood pressure is around 140s to 150s. Her sodium and lower extremities is slightly better since the time of admission. PHYSICAL EXAMINATION Vital signs reviewed. Head: Normocephalic. Eyes: Sclerae nonicteric. Neck: Brisk carotid upstroke, no jugular venous distention. Lungs: Clear to auscultation. Heart: Regular rate and rhythm, S1-S2, no S3, no murmur or rub. Abdomen: Soft nontender, positive bowel sounds no organomegaly. Extremities: 1+ pitting edema in bilateral lower extremity Neurological exam is nonfocal ASSESSMENT Assessment: #1 symptom for progressively worsening dyspnea on exertion and mild orthopnea, BNP 1310 which could be underestimated due to patient's weight, likely acute exacerbation of chronic heart failure, likely with preserved EF however no recent echocardiogram is available at this time. #2 hypertension #3 chronic venous insufficiency #4 bradycardia #5 acute grief #6 PVCs, monomorphic Plan: From plc engineer perspective we'll obtain a 2-D echo with Doppler study. Continue Lasix 40 mg daily, lisinopril 10 mg twice daily. Start metoprolol succinate 25 mg daily. Once her echo is done, will make further recommendations. Objective - Vital Signs Vital signs: Vital Signs Temp 98.1 F 07/23/23 07:00 Pulse 75 07/23/23 07:00 Resp 18 07/23/23 07:00 BP 165/75 07/23/23 07:00 Pulse Ox 97 07/23/23 07:00 FiO2 Intake & Output 07/22/23 07/23/23 07/23/23 18:59 06:59 18:59 Intake Total 600 240 Balance 600 240 Intake: Oral 600 240 Other: Voiding Method Toilet # Voids 1 1 1 - Labs CBC & Chem 7: 07/22/23 12:35 07/23/23 05:34 Labs: Abnormal Lab Results - Last 24 Hours (Table) 07/22/23 Range/Units 12:35 Carbon Dioxide 33 H (22-30) mmol/L Total Protein 5.8 L (6.3-8.2) g/dL
--- NOTE | 2023-07-23 22:33 | P.PN ---
Progress Note - Text Progress Note Date: 07/23/23 History of present illness; patient is a 73-year-old lady with past medical history significant for hypothyroidism, hypertension, hyperlipidemia who presented to the ER because of shortness of breath. Patient stated that she was just diagnosed with cellulitis and completed course of antibiotics. Patient stated for the last few days she's been noticing shortness of breath that has been intermittent, present on exertion. Denies any chest pain associated with shortness of breath, denies any palpitations. Patient complaining of lower extremity swelling as well. Patient complaining of orthopnea. No complaints of PND. Because of shortness of breath, patient came to the ER Initial lab work done in the ER showed WBC 9.1, hemoglobin 13.5, platelet count 137, sodium 141, potassium 4.5, BUN 50, creatinine 0.71, troponin 0.012, proBNP 1310 EKG done in the ER ventricle rate 58, no ST segment elevation or T-wave inversion seen Chest x-ray done in the ER showed cardiomegaly and mild pulmonary vascular congestion CTA chest done showed no PE, showed trace bilateral pleural effusion with cardiomegaly and interlobular thickening suggestive of CHF exacerbation Patient was admitted to medicine service July 23: I assumed care of the patient today. Breathing a bit better. Chronic lower extremity venous insufficiency. Patient placed on fluid restriction. Oscar wrap ordered. Discussed at length with the patient. Active Medications Acetaminophen (Acetaminophen Tab 500 Mg Tab) 1,000 mg PO Q6H PRN PRN Reason: Fever and/ or Pain Aspirin (Aspirin 81 Mg) 81 mg PO DAILY [facility] Last Admin: 07/23/23 07:59 Dose: 81 mg Atorvastatin Calcium (Atorvastatin 40 Mg Tab) 40 mg PO DAILY [facility] Last Admin: 07/23/23 07:59 Dose: 40 mg Furosemide (Furosemide 40 Mg Tab) 40 mg PO DAILY [facility] Last Admin: 07/23/23 07:59 Dose: 40 mg Levothyroxine Sodium (Levothyroxine 75 Mcg Tab) 75 mcg PO 0630 [facility] Last Admin: 07/23/23 05:47 Dose: 75 mcg Lisinopril (Lisinopril 10 Mg Tab) 10 mg PO BID [facility] Last Admin: 07/23/23 20:11 Dose: 10 mg Loperamide HCl (Loperamide 2 Mg Cap) 2 mg PO QID PRN PRN Reason: Diarrhea Last Admin: 07/22/23 16:06 Dose: 2 mg Loratadine (Loratadine 10 Mg Tab) 10 mg PO DAILY [facility] Last Admin: 07/23/23 07:59 Dose: Not Given Metoprolol Succinate (Metoprolol Succinate (Er) 25 Mg Tab.Er.24h) 25 mg PO DAILY [facility] Last Admin: 07/23/23 10:25 Dose: 25 mg Naloxone HCl (Naloxone 0.4 Mg/Ml 1 Ml Vial) 0.2 mg IV Q2M PRN PRN Reason: Opioid Reversal Pantoprazole Sodium (Pantoprazole 40 Mg Tablet) 40 mg PO AC-[id number] [facility] Last Admin: 07/23/23 05:47 Dose: 40 mg On examination: VITAL SIGNS: [98.1, 52, 18, 115/70, 97% room air] GENERAL APPEARANCE: BMI 46.1, sitting at edge of the bed HEENT: Normal external appearance of nose and ear. Oral cavity normal EYES: Pupils equal. Conjunctiva normal. NECK: JVD not raised. Mass not palpable. RESPIRATORY: Respiratory effort normal. Lungs clear to auscultation. CARDIOVASCULAR: First and second sounds normal. No edema. ABDOMEN: Soft. Liver and spleen not palpable. No tenderness. No mass palpable. PSYCHIATRY: Alert and oriented x3. Mood and affect normal. EXTREMITIES: Lower extremity venous insufficiency. INVESTIGATIONS, reviewed in the clinical context: July 23: Potassium 4 creatinine 0.76 TSH 2.4 ProBNP 1310 Assessment and plan Acute diastolic heart failure Hypertension Chronic renal insufficiency Bradycardia Hyperlipidemia Hypothyroidism Assessment and plan: -Acute congestive heart failure exacerbation. Improving By mouth Lasix. Pending 2-D echo results. -Chronic bilateral lower external edema venous insufficiency Oscar wrap's. Patient does follow with the vascular Dr. Austin. -Morbid obesity BMI 46.1 Weight loss measures -Hyperlipidemia Lipitor 40 mg -Hypothyroid Synthroid 75 g a day -Essential hypertension Lopressor 25 mg twice a day. Zestril 10 mg day. Pending 2-D echo. Fluid restriction added. Discussed with patient. Oscar wrap lower extremity. Hopefully discharge tomorrow.
[2023-07-24] MEDS: PANTOPRAZOLE 40 MG TABLET PO SCH (06:30)
[2023-07-24] MEDS: LEVOTHYROXINE 75 MCG TAB PO SCH (06:30)
[2023-07-24] MEDS: METOPROLOL SUCCINATE (ER) 25 MG TAB.ER.24H PO SCH (09:06)
[2023-07-24] MEDS: FUROSEMIDE 40 MG TAB PO SCH (09:06)
[2023-07-24] MEDS: ASPIRIN 81 MG PO SCH (09:06)
[2023-07-24] MEDS: ATORVASTATIN 40 MG TAB PO SCH (09:06)
[2023-07-24] MEDS: lisinopriL 10 MG TAB PO SCH (09:07)
[2023-07-24] MEDS: LORATADINE 10 MG TAB PO SCH (09:07)
[2023-07-24] MEDS: LOPERAMIDE 2 MG CAP PO PRN (14:47)
[2023-07-24] MEDS ORDERED: LOPERAMIDE 2 MG CAP PO ONE (15:18)
[2023-07-24 15:27] VITALS: BP 114/58; PULSE 56; RESP 20; TEMP 97.2
--- NOTE | 2023-07-24 18:10 | CA ---
Transthoracic Echo Report Name: Vidhi Shah Age: 73 Gender: F : 1950 Exam Date: 07/24/2023 09:22 Exam Location: [place] [facility] Ht (in): 63 Wt (lb): 260 Ordering Physician: Corry Pascual Attending/Referring Phys: [id number], Samara Greens Picker Mayda Wood RDCS Procedure CPT: Indications: chf Cardiac Hx: Technical Quality: Fair Contrast 1: Total Dose (mL): Contrast 2: Total Dose (mL): MEASUREMENTS (Male / Female) Normal Values 2D ECHO LV Diastolic Diameter PLAX 4.0 cm 4.2 - 5.9 / 3.9 - 5.3 cm LV Systolic Diameter PLAX 2.8 cm IVS Diastolic Thickness 1.4 cm 0.6 - 1.0 / 0.6 - 0.9 cm LVPW Diastolic Thickness 1.2 cm 0.6 - 1.0 / 0.6 - 0.9 cm LV Relative Wall Thickness 0.6 RV Internal Dim ED PLAX 3.6 cm LA Volume 104.1 cm??? 18 - 58 / 22 - 52 cm??? M-MODE Aortic Root Diameter MM 3.2 cm LA Systolic Diameter MM 5.2 cm LA Ao Ratio MM 1.6 AV Cusp Separation MM 1.9 cm DOPPLER AV Peak Velocity 189.0 cm/s AV Peak Gradient 14.3 mmHg AV Mean Velocity 137.2 cm/s AV Mean Gradient 8.5 mmHg AV Velocity Time Integral 43.3 cm LVOT Peak Velocity 137.1 cm/s LVOT Peak Gradient 7.5 mmHg LVOT Velocity Time Integral 31.7 cm MV Area PHT 3.1 cm??? Mitral E Point Velocity 107.1 cm/s Mitral A Point Velocity 71.4 cm/s Mitral E to A Ratio 1.5 MV Deceleration Time 246.5 ms MV E' Velocity 8.1 cm/s Mitral E to MV E' Ratio 13.3 TR Peak Velocity 277.2 cm/s TR Peak Gradient 30.7 mmHg Right Ventricular Systolic Press 35.1 mmHg FINDINGS Left Ventricle Moderately increased left ventricular wall thickness. Left ventricular cavity size normal. Normal left ventricular systolic function with no obvious regional wall motion abnormalities. Left ventricular ejection fraction is estimated at 55-60 %. Right Ventricle Mild right ventricular dilatation. Mild pulmonary hypertension. Right Atrium Normal right atrial size. Left Atrium Severely increased left atrial volume. Mildly increased left atrial area. Mitral Valve Structurally normal mitral valve. Mild mitral regurgitation. Mild mitral annular calcification. Aortic Valve No aortic valve stenosis or regurgitation. Tricuspid Valve Structurally normal tricuspid valve. Mild tricuspid regurgitation. Pulmonic Valve Structurally normal pulmonic valve. Trace pulmonic regurgitation. Pericardium No pericardial effusion. Aorta Normal size aortic root and proximal ascending aorta. CONCLUSIONS Normal LV global systolic function. LVEF 55% No obvious regional wall motion abnormality Moderate concentric LVH Mild RV dilatation, RVSP estimated at 35 mmHg Mitral annular calcification No major valvular pathology No prior echo to compare with within database Previewed by: Dr Marcos Guerra (Electronically Signed) Final Date: 24 July 2023 18:10
--- NOTE | 2023-07-24 20:24 | P.DS ---
Providers Date of admission: 07/21/23 13:49 Expected date of discharge: 07/24/23 Attending physician: Curt Brown Consults: 07/21/23 13:48 Consult Physician Routine Consulting Provider: Mone Franz Consult Reason/Comments: suspect heart failure Do you want consulting provider notified?: Yes Primary care physician: Joan Chris [facility] Course: History of present illness; patient is a 73-year-old lady with past medical history significant for hypothyroidism, hypertension, hyperlipidemia who presented to the ER because of shortness of breath. Patient stated that she was just diagnosed with cellulitis and completed course of antibiotics. Patient stated for the last few days she's been noticing shortness of breath that has been intermittent, present on exertion. Denies any chest pain associated with shortness of breath, denies any palpitations. Patient complaining of lower extremity swelling as well. Patient complaining of orthopnea. No complaints of PND. Because of shortness of breath, patient came to the ER Initial lab work done in the ER showed WBC 9.1, hemoglobin 13.5, platelet count 137, sodium 141, potassium 4.5, BUN 50, creatinine 0.71, troponin 0.012, proBNP 1310 EKG done in the ER ventricle rate 58, no ST segment elevation or T-wave inversion seen Chest x-ray done in the ER showed cardiomegaly and mild pulmonary vascular congestion CTA chest done showed no PE, showed trace bilateral pleural effusion with cardiomegaly and interlobular thickening suggestive of CHF exacerbation Patient was admitted to medicine service July 23: I assumed care of the patient today. Breathing a bit better. Chronic lower extremity venous insufficiency. Patient placed on fluid restriction. Oscar wrap ordered. Discussed at length with the patient. July 24: Patient doing well. Discussed at length. Patient to contact awaiting a stress. Fluid restriction. 2-D echo shows preserved LV function. Probably underlying diastolic dysfunction. He'll follow-up with Dr. Guerra from cardiology in the office. Discussion and discharge planning more than 35 minutes On examination: VITAL SIGNS: 97.2, 56, 20, 104/58, 96% room air GENERAL APPEARANCE: BMI 46.1, sitting at edge of the bed, comfortable. Oscar wrap HEENT: Normal external appearance of nose and ear. Oral cavity normal EYES: Pupils equal. Conjunctiva normal. NECK: JVD not raised. Mass not palpable. RESPIRATORY: Respiratory effort normal. Lungs clear to auscultation. CARDIOVASCULAR: First and second sounds normal. No edema. ABDOMEN: Soft. Liver and spleen not palpable. No tenderness. No mass palpable. PSYCHIATRY: Alert and oriented x3. Mood and affect normal. EXTREMITIES: Lower extremity venous insufficiency. INVESTIGATIONS, reviewed in the clinical context: 2-D echo: Moderate LVH. EF 55/60% July 23: Potassium 4 creatinine 0.76 TSH 2.4 ProBNP 1310 Assessment and plan: -Acute congestive heart failure exacerbation. From diastolic dysfunction, EF 55-60%. Better Lasix 40 mg once a day. -Chronic bilateral lower external edema venous insufficiency Oscar wrap's. Patient does follow with the vascular Dr. Austin. -Morbid obesity BMI 46.1 Weight loss measures -Hyperlipidemia Lipitor 40 mg -Hypothyroid Synthroid 75 g a day -Essential hypertension Lopressor 25 mg twice a day. Zestril 10 mg day. Disposition: Home Labs: BMP: One-week Patient Condition at Discharge: Fair Plan - Discharge Summary Discharge Rx Participant: No New Discharge Prescriptions: New Aspirin 81 mg PO DAILY tab Furosemide [Lasix] 40 mg PO Q48H #30 tab Metoprolol Succinate (ER) [Toprol XL] 25 mg PO DAILY #30 tab Continue Levothyroxine Sodium [Synthroid] 75 mcg PO DAILY Atorvastatin [Lipitor] 40 mg PO DAILY Cetirizine HCl [Zyrtec] 10 mg PO DAILY Acetaminophen [Tylenol Arthritis] 1,300 mg PO Q6H PRN PRN Reason: Fever And/ Or Pain Changed lisinopriL [Zestril] 10 mg PO BID #60 tab Discontinued Metoprolol Tartrate [Lopressor] 25 mg PO BID Discharge Medication List Atorvastatin [Lipitor] 40 mg PO DAILY 03/30/15 [History] Levothyroxine Sodium [Synthroid] 75 mcg PO DAILY 03/30/15 [History] Cetirizine HCl [Zyrtec] 10 mg PO DAILY 02/06/23 [History] Acetaminophen [Tylenol Arthritis] 1,300 mg PO Q6H PRN 07/21/23 [History] Aspirin 81 mg PO DAILY tab 07/24/23 [Rx] Furosemide [Lasix] 40 mg PO Q48H #30 tab 07/24/23 [Rx] Metoprolol Succinate (ER) [Toprol XL] 25 mg PO DAILY #30 tab 07/24/23 [Rx] lisinopriL [Zestril] 10 mg PO BID #60 tab 07/24/23 [Rx] Follow up Appointment(s)/Referral(s): Marcos Guerra MD [Medical Doctor] - 1 Week (Office will call patient with appointment ) Joan Astorga DO [Primary Care Provider] - 1-2 days Activity/Diet/Wound Care/Special Instructions: fluid restrict 2000 cc/day Discharge Disposition: HOME SELF-CARE
== END 2023-07-24 18:13 | disposition home or self-care (01) ==
LOC: EC 10:10 → 6NMEDSUR 13:49
PROVIDERS: ADMIT Hospitalist; ATTEND Hospitalist
DX: I13.0 Hypertensive heart and chronic kidney disease with heart failure and stage 1 through stage 4 chronic kidney disease, or unspecified chronic kidney disease (principal); I50.31 Acute diastolic (congestive) heart failure; N18.9 Chronic kidney disease, unspecified; I87.2 Venous insufficiency (chronic) (peripheral); F43.21 Adjustment disorder with depressed mood; E03.9 Hypothyroidism, unspecified; J44.9 Chronic obstructive pulmonary disease, unspecified; K21.9 Gastro-esophageal reflux disease without esophagitis; E78.5 Hyperlipidemia, unspecified; F32.A Depression, unspecified; F41.9 Anxiety disorder, unspecified; I49.3 Ventricular premature depolarization; E66.01 Morbid (severe) obesity due to excess calories; Z68.42 Body mass index [BMI] 45.0-49.9, adult; Z96.651 Presence of right artificial knee joint; Z87.891 Personal history of nicotine dependence; Z79.899 Other long term (current) drug therapy; Z79.890 Hormone replacement therapy; Z20.822 Contact with and (suspected) exposure to COVID-19
CPT/HCPCS: 96374; 99285; 36415; 93005; 93306; 85379; 83880; 80053; 80048 ×2; 84443; 83605; 84484; 85025 ×2; 85610; 85730; 87636; 71046; 71275; G0378 ×4; J1940; Q9967

== ENCOUNTER → 2023-10-28 | Outpatient (CLI) | payer MEDICARE, OTHER ==
[2023-10-29 02:54] LABS: BUN/Creat Ratio 16.67 Ratio (12.00-20.00); Calcium 9.1 mg/dL (8.7-10.3); Carbon Dioxide 28.9 mmol/L (21.6-31.8); Chloride 101 mmol/L (96-109); Glucose 119 mg/dL (70-110); Sodium 140 mmol/L (135-145)
== END | disposition home or self-care (01) ==
LOC: LABWHC1 15:49
PROVIDERS: ATTEND Student in an Organized Health Care Education/Training Program
DX: I50.9 Heart failure, unspecified (principal); E87.8 Other disorders of electrolyte and fluid balance, not elsewhere classified
CPT/HCPCS: 36415; 80048; 83735

== ENCOUNTER → 2023-11-27 | Outpatient (CLI) | payer MEDICARE, OTHER ==
[2023-11-27 15:28] LABS: T4, Free (Free Thyroxine) 1.59 ng/dL (0.80-1.80)
== END | disposition home or self-care (01) ==
LOC: LABWHC1 11:25
PROVIDERS: ATTEND Family Medicine
DX: E03.9 Hypothyroidism, unspecified (principal)
CPT/HCPCS: 36415; 84439; 84443

== ENCOUNTER → 2023-12-05 | Outpatient (CLI) | payer MEDICARE, OTHER ==
--- NOTE | 2023-12-06 20:24 | MM ---
Reason for Exam: Screening (asymptomatic). Last mammogram was performed 1 year(s) and 1 month(s) ago. Patient History: Menarche at age 10. First Full-Term at age 18. Postmenopausal. Maternal cousin had breast cancer, age 27. Risk Values: Suzi 5 year model risk: 1.6%. NCI Lifetime model risk: 3.4%. Prior Study Comparison: 06/21/2021 Bilateral MG 3D screening mammo w/cad, [facility]. 10/22/2022 Bilateral MG 3D screening mammo w/cad, [facility]. Tissue Density: There are scattered fibroglandular densities. Findings: Analyzed By CAD. There is no suspicious group of microcalcifications or new suspicious mass in either breast. Overall Assessment: Negative, BI-RAD 1 Management: Screening Mammogram of both breasts in 1 year. . Patient should continue monthly self-breast exams. A clinical breast exam by your physician is recommended on an annual basis. This exam should not preclude additional follow-up of suspicious palpable abnormalities. Note on Suzi scores and lifetime risk: 1. A Suzi score greater than 3% is considered moderate risk. If this is the case, consider specialist referral to assess eligibility for a risk reducing agent. 2. If overall lifetime risk for the development of breast cancer is 20% or higher, the patient may qualify for future screening with alternating mammogram and breast MRI. Electronically signed and approved by: Kathy Flanagan M.D. Radiologist
== END | disposition home or self-care (01) ==
LOC: RADMAMWWP 15:21
PROVIDERS: ATTEND Family Medicine
DX: Z12.31 Encounter for screening mammogram for malignant neoplasm of breast (principal); Z78.0 Asymptomatic menopausal state; R92.323 Mammographic fibroglandular density, bilateral breasts
CPT/HCPCS: 77063; 77067

== ENCOUNTER → 2024-05-05 | Outpatient (CLI) | payer MEDICARE, OTHER ==
[2024-05-05 14:22] LABS: HCT 41.9 % (37.2-46.3); MCH 28.1 pg (27.0-32.0); MCV 90.5 FL (80.0-97.0); Mean Platelet Volume 12.7 FL (9.5-12.2); NRBC Per 100 WBC 0 X 10*3/uL (0.00-0.01); Platelet Count 172 X 10*3/uL (140-440); RBC 4.63 X 10*6/uL (4.10-5.20); RDW 14.4 % (11.5-14.5); WBC 8.73 X 10*3/uL (4.50-10.00)
[2024-05-05 14:36] LABS: NT-Pro-B-Type Natriuretic Pept 560 pg/mL (0-450)
[2024-05-05 14:38] LABS: ALT 22 U/L (8-44); AST 25 U/L (13-35); Albumin 4.3 g/dL (3.8-4.9); Albumin/Globulin Ratio 2.26 Ratio (1.60-3.17); Alkaline Phosphatase 118 U/L (41-126); BUN/Creat Ratio 19.75 Ratio (12.00-20.00); Blood Urea Nitrogen 15.8 mg/dL (9.0-27.0); Calcium 9.5 mg/dL (8.7-10.3); Carbon Dioxide 25.9 mmol/L (21.6-31.8); Chloride 103 mmol/L (96-109); Chol/HDL Ratio 2.98 Ratio; Globulin 1.9 g/dL (1.6-3.3); Glucose 110 mg/dL (70-110); LDL Cholesterol,Calculated 102.8 mg/dL (0.0-131.0); Potassium 4.8 mmol/L (3.5-5.5); Sodium 142 mmol/L (135-145); Total Bilirubin 0.8 mg/dL (0.3-1.2); Total Protein 6.2 g/dL (6.2-8.2)
== END | disposition home or self-care (01) ==
LOC: LABWHC1 10:31
PROVIDERS: ATTEND Student in an Organized Health Care Education/Training Program
DX: E11.9 Type 2 diabetes mellitus without complications (principal); I50.9 Heart failure, unspecified; I25.10 Atherosclerotic heart disease of native coronary artery without angina pectoris
CPT/HCPCS: 36415; 80053; 80061; 83036; 83880; 84443; 85027

== ENCOUNTER → 2024-09-07 | Outpatient (CLI) | payer MEDICARE, OTHER | END | disposition home or self-care (01) | LOC: LABPAT 15:39 | PROVIDERS: ATTEND Orthopaedic Surgery | CPT/HCPCS: 87070 ==

== ENCOUNTER 2024-11-03 08:12 | Day surgery (SDC) | payer MEDICARE, OTHER ==
[2024-10-30 13:46] VITALS: BMI 40.7
--- NOTE | 2024-11-02 08:33 | P.HPOR ---
History of Present Illness H&P Date: 11/02/24 Chief Complaint: Left knee pain The patient is a 74-year-old female who presents with progressive left knee pain for the past year worsening recently. She's having anterior medial pain with any weightbearing activities. She has swelling and instability. She does use a walker. She notes daily pain that limits her normal function and activities. She had an injection without much relief. Review of Systems per HPI Past Medical History Past Medical History: Heart Failure, GERD/Reflux, Hearing Disorder / Deafness, Hyperlipidemia, Hypertension, Musculoskeletal Disorder, Osteoarthritis (OA), Sleep Apnea/CPAP/BIPAP, Thyroid Disorder Additional Past Medical History / Comment(s): Borderline Diabetic. Broken Heart Syndrome. Osteoporosis. SEASONAL ALLERGIES. Varicose veins. Poor circulation, full body edema. "Vein in right leg closes when I stand up and opens when I lay down". No CPAP use. "My left leg from toe to knee is red in the morning and gets better throughout the day." Mild hearing loss. History of Any Multi-Drug Resistant Organisms: None Reported Date of last positivie culture/infection: 2004 MDRO Source:: vaginal area Past Surgical History: Joint Replacement Additional Past Surgical History / Comment(s): Right knee replacement, COLONOS COPY. Past Anesthesia/Blood Transfusion Reactions: No Reported Reaction Smoking Status: Former smoker - Past Family History Mother Family Medical History: No Reported History Father Family Medical History: Deep Vein Thrombosis (DVT), Myocardial Infarction ([place]) Medications and Allergies Home Medications Medication Instructions Recorded Confirmed Type Atorvastatin [Lipitor] 40 mg PO HS 03/30/15 10/30/24 History Levothyroxine Sodium [Synthroid] 75 mcg PO QAM 03/30/15 10/30/24 History Cetirizine HCl [Zyrtec] 10 mg PO DAILY 02/06/23 10/30/24 History Acetaminophen Tab [Tylenol Tab] 1,000 mg PO Q6HR PRN 10/30/24 10/30/24 History Cyclobenzaprine [Flexeril] 10 mg PO TID PRN 10/30/24 10/30/24 History Esomeprazole Magnesium [NexIUM 20 mg PO DAILY 10/30/24 10/30/24 History 24Hr] Furosemide [Lasix] 20 mg PO Q48H 10/30/24 10/30/24 History Metoprolol Succinate (ER) [Toprol 25 mg PO BID 10/30/24 10/30/24 History XL] lisinopriL [Zestril] 10 mg PO QAM 10/30/24 10/30/24 History traMADol HCL 50 mg PO Q12H PRN 10/30/24 10/30/24 History Allergies Allergy/AdvReac Type Severity Reaction Status Date / Time No Known Allergies Allergy Verified 10/30/24 11:38 Physical Examination - Knee left Appearance: effusion Effusion grade: grade 1 Varus alignment in stance: 10 degrees Tenderness with palpation: anterior, medial Pain: throughout ROM Gait: limping ROM: extension: -15 degrees ROM: flexion: 70 degrees Meniscal tests: medial meniscal tests: positive, medial joint line pain: positive Results The patient is a well-developed well-nourished female approximately 5 foot 3, 210 pounds of endomorphic habitus. HEENT exam is nonfocal, neck is supple. She has painless passive motion of her left hip. Straight leg raise is negative. She's tender about the medial joint line of the left knee. Collaterals are stable, Rody is negative, Emelina's elicits medial pain. She has an antalgic gait pattern. Her distal neurovascular appears intact in the left lower extremity. - Diagnostic results Knee x-ray: image reviewed (X-rays of the left knee obtaining our office show severe medial and patellofemoral compartment osteoarthrosis with subchondral sclerosis and [id number] changes.) Assessment and Plan Assessment: Left knee severe medial and patellofemoral compartment osteoarthrosis Left lower extremity lymphedema Obesity Plan: I talked to the patient regarding her condition along with treatment options. At this point she is quite symptomat she is having pain and mechanical symptoms related to her left knee osteoarthrosis despite conservative measures. After a thorough discussion she opts to proceed with surgery. We'll plan to proceed with left total knee arthroplasty. Risks and benefits were discussed at length in layman's termsl institute DVT prophylaxis postoperatively.
[~2024-11-03 08:12] MED LIST changes: -LACTATED RINGERS 1,000 ML IV SCH; -LIDOCAINE 1% (10MG/ML) FOR IV START INTRADERMA PRN; +TRANEXAMIC 1,000 MG/100ML-NACL 1,000 MG in SALINE 1 100ML.BAG IVPB PRN
[2024-11-03] MEDS ORDERED: LIDOCAINE 1% (10MG/ML) FOR IV START INTRADERMA PRN (08:53)
[2024-11-03] MEDS ORDERED: HYDROmorphone 0.5 MG/0.5 ML SYRINGE IVP PRN ×3 (08:53→12:34)
[2024-11-03] MEDS: LACTATED RINGERS 1,000 ML IV SCH (09:21)
[2024-11-03 09:33] LABS: Glucose,Whole Blood 97 mg/dL (70-110)
[2024-11-03] MEDS: MELOXICAM 7.5 MG TAB PO PRN (09:33)
[2024-11-03] MEDS: ACETAMINOPHEN TAB 500 MG TAB PO PRN (09:33)
[2024-11-03] MEDS: ONDANSETRON 4 MG/2 ML VIAL IVP ONE (09:35)
[2024-11-03] MEDS: DEXAMETHASONE SOD PHOSPHATE 4 MG/ML 1 ML VIAL IV ONE (09:35)
[2024-11-03] MEDS: MIDAZOLAM 2 MG/2 ML VIAL IV PRN (09:44)
[2024-11-03] MEDS: fentaNYL (PF) 50 MCG/ML 2 ML AMP IVP PRN (09:44)
--- NOTE | 2024-11-03 10:14 | P.ANPRN ---
Procedure Note - Anesthesia - Nerve Block Performed Left Cameronck Single Time Out Performed: Yes Date of Procedure: 11/03/24 Procedure Start Time: :44 Procedure Stop Time: 09:49 Location of Patient: PreOp Indication: Acute Post-Operative Pain, Analgesia, Requested by Surgeon Sedation Type: Sedate with meaningful contact maintained Preparation: Sterile Prep Position: Right Lateral Catheter: None Needle Types: Pajunk Needle Gauge: 21 Ultrasound used to visualize needle placement: Yes Ultrasound used to observe medication spread: Yes Injectate: 0.5% Ropivacaine (see comment for volume) (Ropiv 20ml+Decadron 4mg) Blood Aspirated: No Pain Paresthesia on Injection Noted: No Resistance on Injection: Normal Image Stored and Saved: Yes Events: Uneventful and Well Tolerated
--- NOTE | 2024-11-03 10:15 | P.ANPRN ---
Procedure Note - Anesthesia - Nerve Block Performed Left Adductor Canal Infusion Time Out Performed: Yes Date of Procedure: 11/03/24 Procedure Start Time: :49 Procedure Stop Time: :54 Location of Patient: PreOp Indication: Acute Post-Operative Pain, Analgesia, Requested by Surgeon Sedation Type: Sedate with meaningful contact maintained Preparation: Sterile Prep Position: Supine Catheter: Indwelling Needle Types: On-Q Ultrasound used to visualize needle placement: Yes Ultrasound used to observe medication spread: Yes Injectate: 0.5% Ropivacaine (see comment for volume) (Ropiv 20ml+Duorrflr2oh) Blood Aspirated: No Pain Paresthesia on Injection Noted: No Resistance on Injection: Normal Image Stored and Saved: Yes Events: Uneventful and Well Tolerated
[2024-11-03] MEDS ORDERED: MIDAZOLAM 2 MG/2 ML VIAL ONE (10:40)
[2024-11-03] MEDS ORDERED: fentaNYL (PF) 50 MCG/ML 2 ML AMP ONE (10:40)
[2024-11-03] MEDS ORDERED: ROCURONIUM 10 MG/ML (5 ML VIAL) IV ONE (10:40)
[2024-11-03] MEDS ORDERED: PROPOFOL 10 MG/ML 20 ML VIAL IV ONE (10:40)
[2024-11-03] MEDS ORDERED: TRANEXAMIC 1,000 MG/100ML-NACL PREMIX BAG ONE (10:40)
[2024-11-03] MEDS ORDERED: ROPIVACAINE 5 MG/ML 30 ML VIAL ONE (10:40)
[2024-11-03] MEDS ORDERED: GLYCOPYRROLATE 0.2 MG/ML 2 ML VIAL ONE (10:40)
[2024-11-03] MEDS ORDERED: KETAMINE HCL IN 0.9 % NACL 50 MG/5 ML SYRINGE ONE (10:40)
[2024-11-03] MEDS ORDERED: HYDROmorphone (PF) 1 MG/ML ONE (10:40)
[2024-11-03] MEDS ORDERED: NEOSTIGMINE 1 MG/ML 10 ML VIAL ONE (10:40)
[2024-11-03] MEDS ORDERED: DEXAMETHASONE SOD PHOSPHATE 4 MG/ML 1 ML VIAL ONE (10:40)
[2024-11-03] MEDS: ceFAZolin 1,000 MG in SODIUM CHLORIDE 0.9% 1,000 ML IRRIGATION ONE (11:14)
[2024-11-03] MEDS: LACTATED RINGERS 1,000 ML IV ONE (11:59)
[2024-11-03] MEDS ORDERED: MAGNESIUM HYDROXIDE 2,400 MG/30 ML CUP PO PRN (12:34)
[2024-11-03] MEDS ORDERED: NALOXONE 0.4 MG/ML 1 ML VIAL IV PRN (12:34)
[2024-11-03] MEDS ORDERED: hydrOXYzine pamoate 25 MG CAP PO PRN (12:34)
[2024-11-03] MEDS ORDERED: ONDANSETRON 4 MG/2 ML VIAL IVP PRN (12:34)
[2024-11-03] MEDS ORDERED: CYCLOBENZAPRINE 10 MG TAB PO PRN ×2 (12:40→16:34)
--- NOTE | 2024-11-03 12:46 | P.OP ---
Date of Procedure: 11/03/24 Preoperative Diagnosis: Left knee severe tricompartmental osteoarthrosis Postoperative Diagnosis: Same Procedure(s) Performed: Left total knee arthroplastycementedposterior stabilized Implants: DePuy attune size 5 narrow cemented femoral component, size 4 cemented tibial component with a 14 x 50 mm stem, 9 mm articular surface, 32 mm cemented patellar component. This is a posterior stabilized implant. Anesthesia: [facility], [facility] Surgeon: Deuce Thomas [employer] Motor Tester Assembler #1: Eliseo Alexander Estimated Blood Loss (ml): 50 Pathology: none sent Condition: stable Disposition: PACU Indications for Procedure: The patient is a 74-year-old female who presents with progressive left knee pain secondary to osteoarthrosis despite conservative measures. A discussion of the risks and benefits of operative intervention versus continued conservative measures was made with the patient. She opted proceed with surgery. Operative risks include infection, neurovascular injury, development of blood clots, fracture, possible component loosening/failure and possible need for subsequent procedures was discussed. Informed consent was obtained. Operative Findings: As below Description of Procedure: The patient was brought to the operating room, and after induction of spinal anesthesia the left lower extremity was prepped and draped in a normal fashion. The tourniquet was inflated to 270 mm marker. A longitudinal incision extending 3 finger breaths above the superior pole of patella extending to the medial aspect the tibial tubercle was then made. The skin and subcutaneous tissues wer e divided sharply. Electrocautery was used for hemostasis. A medial parapatellar arthrotomy was performed. The medial soft tissues to include the superficial and deep portions of the medial collateral ligament were elevated subperiosteally. The patella was everted. A portion of the retropatellar fat pad was excised sharply. The anterior cruciate ligament was sacrificed. Blunt retractors were placed. A starting hole was made in the distal femur 1 cm anterior to the posterior cruciate ligament origin. An intramedullary femoral guide was then inserted planning on 5 valgus distal cut with 9 mm distal resection. The cutting block was pinned in place. The distal cut was then made. The posterior referencing sizing guide was utilized. I felt size 5 narrow was most appropriate. 3 of external rotation was built into the system and verified off the trans-epicondylar axis and the posterior condyles. The cutting block was pinned in place. The anterior, posterior, and chamfer cuts then made. Bone fragments were removed. The intercondylar guide was placed and the notch cut was made with a sagittal saw. The bone block was removed in one fragment. The trial component was then placed. There is good anterior to posterior and medial to lateral fit. The distal peg holes were drilled. The trial component was removed. Attention was then paid towards preparing the proximal tibia. An extra medullary guide was utilized in line with the tibial shaft and second metatarsal distally. I planned on 2 mm resection from the medial compartment. The cutting block was pinned in place. The proximal tibial cut was then made. The bone was removed in one fragment. The remnants of the medial and lateral menisci were excised at the capsular junction with electrocautery. The tibia sized most appropriately at size 4. The trial femoral and tibial components were placed along with a 9 mm articular surface. I was able to obtain full flexion and extension with internal and external rotation. After several flexion and extension cycles, the tibial rotation was marked with electrocautery line with the medial one third of the tibial tubercle. Attention was then paid towards preparing the patella. A patella reamer was utilized taking stem to 14 mm of bone stock. A good flush cut was made. The patella sized most appropriately 32 mm. The peg holes were drilled. The trial components placed. I had good patellofemoral tracking with no hands technique. The trial components were then removed. The tibia was prepared in the appropriate rotation with appropriate drill and keel punch planning on a 14 x 50 mm stem. The posterior osteophytes were removed with a curved osteotome. The flexion and extension gaps were checked and felt to be symmetric at 9 mm. A trial components were then removed. The bony surfaces were prepared with pulsatile lavage and dried. The tibial component was then cemented place was fully seated. Excess cement was removed. The femoral component cemented place and was fully seated. Excess cement was removed. The trial 9 mm articular surface was placed and the knee was put in full extension. The patella component was cemented place. After the cement had sufficiently hardened, the knee was again taken through a range of motion. Again I was able to obtain full flexion and extension with varus and valgus stress. The trial 9 mm articular surface was removed and the final one inserted. This was fully seated. Care was taken to avoid any soft tissue interposition. Pulsatile lavage was again utilized. The medial parapatellar arthrotomy was closed with #2 Ethibond suture. The tourniquet was deflated with approximately 60 minutes total tourniquet time. Final hemostasis was obtained with the cautery. There was minimal bleeding therefore a deep drain was not placed. The subcutaneous tissues were reapproximated with interrupted 2-0 Vicryl sutures. The skin was reapproximated with 3-0 subcuticular strata fix suture. Skin tape and adhesive was applied. A sterile dressing was applied. The patient was awoken from sedation and transferred to recovery room in good condition. Blood loss was estimated at 50 mL. No complications were incurred. Sponge and needle counts were correct at the end of the case. Eliseo DUBOIS assisted during the major components of this case to include exposure, bone resection, implantation, and closure.
[2024-11-03] MEDS: ROPIVACAINE 1,100 MG, SODIUM CHLORIDE 0.9% 500 ML 330 ML, EMPTY PAIN BALL 1 EACH MISCELLANE PRN (13:23)
--- NOTE | 2024-11-03 14:02 | XR ---
EXAMINATION TYPE: XR knee limited LT DATE OF EXAM: 11/03/2024 1:27 PM COMPARISON: None CLINICAL INDICATION: Female, 74 years old with history of Evaluation for Postop abnormality and align ment; PHH, pain TECHNIQUE: XR knee limited LT 2 views submitted. FINDINGS: Status post total knee arthroplasty changes with hardware in appropriate alignment and in tact. No evidence of fracture. Subcutaneous lucencies and lucencies within the joint consistent with surgical changes. IMPRESSION: Status post total knee arthroplasty changes with hardware intact and appropriate alignment. No fractu res identified. [facility], , 11/03/2024 2:00 PM
--- NOTE | 2024-11-03 20:32 | P.CONS ---
History of Present Illness - Reason for Consult Consult date: 11/03/24 Medical management Requesting physician: Deuce Thomas - Chief Complaint Left knee surgery - History of Present Illness Pleasant 74-year-old patient, follows with Dr. Joan Astorga. Chronic medical conditions include congestive heart failure from toxic dysfunction EF 55 to 60%, GERD, decreased hearing, hypertension hyperlipidemia, osteoarthritis, obst ructive sleep apnea, hypothyroid, osteoporosis, venous insufficiency. Patient is undergone left total knee arthroplasty. Currently pain controlled. No nausea vomiting. Propped in bed. Patient's and daughter at the bedside visiting. Denies any active cardiac symptoms. Review of systems: GEN.: Awake tired EYES: None HEENT: None NECK: None RESPIRATORY: None CARDIOVASCULAR: None GASTROINTESTINAL: None GENITOURINARY: None MUSCULOSKELETAL: Joint pains LYMPHATICS: None HEMATOLOGICAL: None PSYCHIATRY: None NEUROLOGICAL: None Social history: Does have a walker. Smoked about 1 to 2 packs a day for 35 years stopped about 11 years ago. Alcohol rarely. Physical examination: VITAL SIGNS: Afebrile, 48, 18, 129 x 53, 96% on 2 L GENERAL: BMI 45.6, reclining bed awake slightly tired. EYES: Pupils equal. Conjunctiva prabhjot l. HEENT: External appearance of nose and ears normal, oral cavity grossly normal. NECK: JVD not raised; masses not palpable. HEART: First and second heart sounds are normal; no edema. LUNGS: Respiratory rate normal; clear to auscultation. ABDOMEN: Soft, nontender, liver spleen not palpable, no masses palpable. PSYCH: Alert and oriented x3; mood and affect prabhjot l. MUSCULOSKELETAL:No Clubbing/cyanosis;muscles-grossly intact. OA in joints. Dressing over the left knee. NEUROLOGICAL: Cranial nerves grossly intact; no facial asymmetry, power and sensation grossly intact. LYMPHATICS: No lymph nodes palpable in the axilla and neck INVESTIGATIONS, reviewed in the clinical context: Previous labs May 05, 2024: White count 8.7 hemoglobin 13 platelets 172 sodium 142 potassium 4.8 creatinine 0.8 Assessment and plan: -Left total knee arthroplasty Pain controlled. On Xarelto per orthopedics team for DVT prophylaxis -Chronic congestive heart failure-diastolic dysfunction, EF 55-60%. Stable Lasix 20 mg alternate day -Chronic bilateral lower external edema venous insufficiency -Morbid obesity BMI 45.6 Weight loss measures -Hyperlipidemia Lipitor 40 mg -Hypothyroid Synthroid 75 g a day -Essential hypertension Toprol-XL 25 mg a day Zestril 10 mg day. -Primary osteoarthritis in other joints Pain medication as needed -Full code Care was discussed with the patient, at the bedside. Questions answered. Home medications reviewed. Thank you Dr. Thomas Past Medical History Past Medical History: Heart Failure, GERD/Reflux, Hearing Disorder / Deafness, Hyperlipidemia, Hypertension, Musculoskeletal Disorder, Osteoarthritis (OA), Sleep Apnea/CPAP/BIPAP, Thyroid Disorder Additional Past Medical History / Comment(s): Borderline Diabetic. Broken Heart Syndrome. Osteoporosis. SEASONAL ALLERGIES. Varicose veins. Poor circulation, full body edema. "Vein in right leg closes when I stand up and opens when I lay down". No CPAP use. "My left leg from toe to knee is red in the morning and gets better throughout the day." Mild hearing loss. History of Any Multi-Drug Resistant Organisms: None Reported Year Discovered:: 2004 MDRO Source:: vaginal area Past Surgical History: Joint Replacement Additional Past Surgical History / Comment(s): Right knee replacement, COLONOSCOPY. Past Anesthesia/Blood Transfusion Reactions: No Reported Reaction Past Psychological History: Anxiety, Depression Smoking Status: Former smoker Past Alcohol Use History: Rare Additional Past Alcohol Use History / Comment(s): Quit smoking April, smoked 35 yrs, 1-2ppd. Past Drug Use History: None Reported - Past Family History Mother Family Medical History: No Reported History Father Family Medical History: Deep Vein Thrombosis (DVT), Myocardial Infarction (MS) Medications and Allergies Home Medications Medication Instructions Recorded Confirmed Type Atorvastatin [Lipitor] 40 mg PO HS 03/30/15 10/30/24 History Levothyroxine Sodium [Synthroid] 75 mcg PO QAM 03/30/15 10/30/24 History Cetirizine HCl [Zyrtec] 10 mg PO DAILY 02/06/23 10/30/24 History Acetaminophen Tab [Tylenol Tab] 1,000 mg PO Q6HR PRN 10/30/24 10/30/24 History Cyclobenzaprine [Flexeril] 10 mg PO TID PRN 10/30/24 10/30/24 History Esomeprazole Magnesium [NexIUM 20 mg PO DAILY 10/30/24 10/30/24 History 24Hr] Furosemide [Lasix] 20 mg PO Q48H 10/30/24 10/30/24 History Metoprolol Succinate (ER) [Toprol 25 mg PO BID 10/30/24 10/30/24 History XL] lisinopriL [Zestril] 10 mg PO QAM 10/30/24 10/30/24 History traMADol HCL 50 mg PO Q12H PRN 10/30/24 10/30/24 History Allergies Allergy/AdvReac Type Severity Reaction Status Date / Time No Known Allergies Allergy Verified 11/03/24 09:10 Physical Exam Vitals: Vital Signs Temp Pulse Pulse Resp BP Pulse Ox 11/03/24 18:15 48 L 18 11/03/24 17:31 48 L 129/53 96 11/03/24 15:56 48 L 136/75 99 11/03/24 15:40 45 L 137/61 98 11/03/24 15:25 39 L 144/69 98 11/03/24 14:15 44 L 16 143/44 100 11/03/24 14:00 44 L 16 138/55 100 11/03/24 13:46 44 L 16 138/56 99 11/03/24 13:31 44 L 14 132/49 99 11/03/24 13:16 44 L 14 123/60 99 11/03/24 13:01 55 L 14 127/69 99 11/03/24 12:45 97 F L 57 L 14 105/72 99 11/03/24 10:07 51 L 16 148/63 99 11/03/24 09:15 98.8 F 58 L 16 166/73 97 Intake and Output 11/03/24 11/03/24 11/03/24 06:59 14:59 22:59 Intake Total 1151 Output Total 50 Balance 1101 Intake: IV 1151 Output: Estimated Blood Loss 50 Other: Weight 116.7 kg
[2024-11-03] MEDS: SENNOSIDES-DOCUSATE SODIUM 1 EACH TAB PO SCH (22:19)
[2024-11-03] MEDS: ATORVASTATIN 40 MG TAB PO SCH (22:19)
[2024-11-04] MEDS: HYDROcodone/APAP 5-325MG 1 EACH TAB PO PRN (03:52)
[2024-11-04 06:02] LABS: African American GFR (CKD) 86 (>60 ml/min/1.73 sqM); Anion Gap 0 mmol/L; Blood Urea Nitrogen 17 mg/dL (7-17); Calcium 8.6 mg/dL (8.4-10.2); Carbon Dioxide 27 mmol/L (22-30); Chloride 108 mmol/L (98-107); Glucose 119 mg/dL (74-99); Non-African American GFR(CKD) 74 (>60 ml/min/1.73 sqM); Potassium 4.4 mmol/L (3.5-5.1); Sodium 135 mmol/L (137-145)
[2024-11-04] MEDS: LEVOTHYROXINE 75 MCG TAB PO SCH (06:31)
[2024-11-04] MEDS: lisinopriL 10 MG TAB PO SCH (08:09)
[2024-11-04] MEDS: FUROSEMIDE 20 MG TAB PO SCH (08:09)
[2024-11-04] MEDS: PANTOPRAZOLE 40 MG TABLET PO SCH (08:09)
[2024-11-04] MEDS: LORATADINE 10 MG TAB PO SCH (08:09)
[2024-11-04] MEDS: RIVAROXABAN 10 MG TAB PO SCH (08:09)
[2024-11-04 08:50] LABS: Basophils # (A) 0.02 X 10*3/uL (0.00-0.10); Basophils % (A) 0.2 %; Eosinophils # (A) 0 X 10*3/uL (0.04-0.35); Eosinophils % (A) 0 %; HCT 34.4 % (37.2-46.3); HGB 10.8 g/dL (12.0-15.0); Lymphocytes # (A) 0.92 X 10*3/uL (0.90-5.00); MCH 28.1 pg (27.0-32.0); MCHC 31.4 g/dL (32.0-37.0); MCV 89.6 FL (80.0-97.0); Mean Platelet Volume 12.9 FL (9.5-12.2); Monocytes # (A) 0.89 X 10*3/uL (0.20-1.00); Monocytes % (A) 6.8 %; NRBC Per 100 WBC 0 X 10*3/uL (0.00-0.01); Neutrophils # (A) 11.24 X 10*3/uL (1.80-7.70); Neutrophils % (A) 85.5 %; Platelet Count 158 X 10*3/uL (140-440); RBC 3.84 X 10*6/uL (4.10-5.20); RDW 13.9 % (11.5-14.5); WBC 13.13 X 10*3/uL (4.50-10.00)
[2024-11-04] MEDS: HYDROcodone/APAP 7.5-325MG 1 EACH TAB PO PRN (10:28)
--- NOTE | 2024-11-04 14:53 | P.PN ---
Progress Note - Text Progress Note Date: 11/04/24 Anesthesiology Postop day 1 status post total knee arthroplasty with adductor canal catheter. Patient doing well. VAS 0 out of 10. Gross strength intact in lower extremity. Afebrile. Denies alterations in sensorium. Catheter site intact. Heart regular rate Lungs nonlabored Abdomen nondistended Assessment: Postop day 1 status post total knee arthroplasty with adductor canal catheter Plan: 1.All questions answered. Maintain catheter 2 more days with patient removal at home. Instructions to be given at discharge. 2.This note was dictated using Yoolink software. Please be advised there is a potential for misspellings or errors in sample book maker.
--- NOTE | 2024-11-04 15:06 | P.PN ---
Subjective Progress Note Date: 11/04/24 Principal diagnosis: Left knee osteoarthritis Patient was seen at bedside this morning sitting up in chair with legs elevated and dressing present over left knee. Patient says she finished working with therapy about an hour ago and walked around the room ambulating with a walker. Patient says she is unable to perform stairs today. Patient says her pain has been controlled well with oral medication. She says she did have issues urinating yesterday after surgery so she was catheterized. Patient has been able to urinate this morning on her own. Patient states no bowel movement yet, however, she does states she is passing gas. Patient denies any other issues at this time. Objective - Vital Signs Vital signs: Vital Signs Temp 98.2 F 11/04/24 08:15 Pulse 60 11/04/24 08:15 Resp 16 11/04/24 08:15 BP 121/64 11/04/24 08:15 Pulse Ox 94 L 11/04/24 08:15 FiO2 Intake & Output 11/03/24 11/04/24 11/04/24 18:59 06:59 18:59 Intake Total 1151 Output Total 50 25 Balance 1101 -25 Weight 116.7 kg Intake: IV 1151 Output: Urine 25 Estimated Blood Loss 50 Other: Voiding Method Bedside Commode - Exam Left knee: Incision is clean, dry, and intact. The exofin fusion tape is in good condit ion. There is minimal soft tissue swelling and ecchymosis surrounding the medial and lateral aspects of the incision. Calf is soft, no tenderness with palpation. Plantar flexion, dorsiflexion, EHL, FHL are intact. Sensory exam to light touch throughout the extremity is intact, dorsal pedis pulses 2+. - Labs CBC & Chem 7: 11/04/24 03:40 11/04/24 03:40 Labs: Abnormal Lab Results - Last 24 Hours (Table) 11/04/24 11/04/24 Range/Units 03:40 03:40 WBC 13.13 H (4.50-10.00) X 10*3/uL RBC 3.84 L (4.10-5.20) X 10*6/uL Hgb 10.8 L (12.0-15.0) g/dL Hct 34.4 L (37.2-46.3) % MCHC 31.4 L (32.0-37.0) g/dL MPV 12.9 H (9.5-12.2) FL Immature Gran # 0.06 H (0.00-0.04) X 10*3/uL Neutrophils # 11.24 H (1.80-7.70) X 10*3/uL Eosinophils # 0 L (0.04-0.35) X 10*3/uL Sodium 135 L (137-145) mmol/L Chloride 108 H (98-107) mmol/L Glucose 119 H (74-99) mg/dL Assessment and Plan Assessment: 1. Left knee osteoarthritis -Postop day #1 status post left total knee arthroplasty Plan: 1. Left knee osteoarthritis -left total knee arthroplasty form yesterday, 11/03/2024 -left total knee arthroplasty. Patient stable bedside this morning with dressing present over left knee. Patient did work with therapy but was unable to perform stairs. PT recommending patient stay 1 additional night. Patient does have a walker for home. Pain is under control with current regimen. Plan for discharge home tomorrow with health services. 2. Appreciate medical management 3. Pain management -Parnell; Tylenol 4. DVT prophylaxis -Xarelto 5. GI prophylaxis -senna 6. PT/OT -weightbearing as tolerated with walker 7. Encourage incentive spirometer use 8. Discharge planning -plan for discharge home tomorrow with health services pending improvement with PT/OT. Time with Patient: Less than 30
[2024-11-04] MEDS: SODIUM FERRIC GLUCONAT-SUCROSE 125 MG in SODIUM CHLORIDE 0.9% 100 ML IVPB SCH (15:22)
--- NOTE | 2024-11-04 19:38 | P.PN ---
Progress Note - Text Progress Note Date: 11/04/24 - Chief Complaint Left knee surgery - History of Present Illness Pleasant 74-year-old patient, follows with Dr. Joan Astorga. Chronic medical conditions include congestive heart failure from toxic dysfunction EF 55 to 60%, GERD, decreased hearing, hypertension hyperlipidemia, osteoarthritis, obstructive sleep apnea, hypothyroid, osteoporosis, venous insufficiency. Patient is undergone left total knee arthroplasty. Currently pain controlled. No nausea vomiting. Propped in bed. Patient's and daughter at the bedside visiting. Denies any active cardiac symptoms. November 04: Seen this morning. Up in recliner. Pain well-controlled. Did tolerate some diet. No cardiac symptoms. Decrease in hemoglobin. IV Ferrlecit ordered. Active Medications Hydrocodone Bitart/Acetaminophen (Hydrocodone/Apap 5-325mg 1 Each Tab) 1 each PO Q6HR PRN PRN Reason: Pain Scale 1 to 5 Stop: 12/03/24 12:33 Last Admin: 11/04/24 03:52 Dose: 1 each Hydrocodone Bitart/Acetaminophen (Hydrocodone/Apap 7.5-325mg 1 Each Tab) 1 each PO Q6H PRN PRN Reason: Pain Scale 6 to 10 Stop: 12/03/24 12:33 Last Admin: 11/04/24 16:32 Dose: 1 each Atorvastatin Calcium (Atorvastatin 40 Mg Tab) 40 mg PO HS [facility] Last Admin: 11/03/24 22:19 Dose: 40 mg Ropivacaine 1,100 mg/ Sodium Chloride 330 ml/ Bandage/Support Products 1 each 0 mg MISCELLANE Q2H PRN PRN Reason: Breakthrough Pain Stop: 12/03/24 10:14 Last Admin: 11/03/24 13:23 Dose: 550 ml Cyclobenzaprine HCl (Cyclobenzaprine 10 Mg Tab) 10 mg PO TID PRN PRN Reason: Leg Cramping OR MUSCLE SPASM Furosemide (Furosemide 20 Mg Tab) 20 mg PO Q48H [facility] Last Admin: 11/04/24 08:09 Dose: 20 mg Hydromorphone HCl (Hydromorphone 0.5 Mg/0.5 Ml Syringe) 0.5 mg IVP Q3HR PRN PRN Reason: Pain Scale 7 to 10 Stop: 12/03/24 12:33 Hydromorphone HCl (Hydromorphone 0.5 Mg/0.5 Ml Syringe) 0.25 mg IVP Q3HR PRN PRN Reason: Pain Scale 4 to 6 Stop: 12/03/24 12:33 Hydroxyzine Pamoate (Hydroxyzine Pamoate 25 Mg Cap) 25 mg PO Q4HR PRN PRN Reason: Nausea, Anxiety, Pain Control Stop: 12/03/24 12:33 Lactated Ringer's (Lactated Ringers) 1,000 mls @ 20 mls/hr IV .Q24H [facility] Stop: 12/03/24 08:52 Last Admin: 11/04/24 06:33 Dose: 20 mls/hr Ferric Sodium Gluconate 125 mg (/ Sodium Chloride) 110 mls @ 100 mls/hr IVPB DAILY [facility] Stop: 11/05/24 10:05 Last Admin: 11/04/24 15:22 Dose: 100 mls/hr Levothyroxine Sodium (Levothyroxine 75 Mcg Tab) 75 mcg PO 0630 [facility] Last Admin: 11/04/24 06:31 Dose: 75 mcg Lidocaine HCl (Lidocaine 1% (10mg/Ml) For Iv Start) 0.1 ml INTRADERMA PER PROTOCOL PRN PRN Reason: IV Start Stop: 12/03/24 08:52 Lisinopril (Lisinopril 10 Mg Tab) 10 mg PO QAM [facility] Last Admin: 11/04/24 08:09 Dose: 10 mg Loratadine (Loratadine 10 Mg Tab) 10 mg PO DAILY [facility] Last Admin: 11/04/24 08:09 Dose: 10 mg Magnesium Hydroxide (Magnesium Hydroxide 2,400 Mg/30 Ml Cup) 2,400 mg PO DAILY PRN PRN Reason: Constipation Stop: 12/03/24 12:33 Naloxone HCl (Naloxone 0.4 Mg/Ml 1 Ml Vial) 0.2 mg IV Q2M PRN PRN Reason: Opioid Reversal Stop: 12/03/24 12:33 Ondansetron HCl (Ondansetron 4 Mg/2 Ml Vial) 4 mg IVP Q8HR PRN PRN Reason: Nausea And Vomiting Stop: 12/03/24 12:33 Pantoprazole Sodium (Pantoprazole 40 Mg Tablet) 40 mg PO DAILY [facility] Last Admin: 11/04/24 08:09 Dose: 40 mg Rivaroxaban (Rivaroxaban 10 Mg Tab) 10 mg PO DAILY [facility]; Protocol Stop: 11/16/24 08:59 Last Admin: 12/18/24 08:09 Dose: 10 mg Senna/Docusate Sodium (Sennosides-Docusate Sodium 1 Each Tab) 2 each PO HS [facility] Stop: 12/03/24 20:59 Last Admin: 11/03/24 22:19 Dose: Not Given Social history: Does have a walker. Smoked about 1 to 2 packs a day for 35 years stopped about 11 years ago. Alcohol rarely. Physical examination: VITAL SIGNS: 97.6, 61, 16, 107 x 44, 96% room air GENERAL: BMI 45.6, r up in a recliner EYES: Pupils equal. Conjunctiva prabhjot l. HEENT: External appearance of nose and ears normal, oral cavity grossly normal. NECK: JVD not raised; masses not palpable. HEART: First and second heart sounds are normal; no edema. LUNGS: Respiratory rate normal; clear to auscultation. ABDOMEN: Soft, nontender, liver spleen not palpable, no masses palpable. PSYCH: Alert and oriented x3; mood and affect prabhjot l. MUSCULOSKELETAL:No Clubbing/cyanosis;muscles-grossly intact. OA in joints. Dressing over the left knee. INVESTIGATIONS, reviewed in the clinical context: November 04: White count 13.1 hemoglobin 10.8 platelets 158 potassium 4.4 creatinine 0.78 Previous labs May 05, 2024: White count 8.7 hemoglobin 13 platelets 172 sodium 142 potassium 4.8 creatinine 0.8 Assessment and plan: -Left total knee arthroplasty Pain controlled. On Xarelto per orthopedics team for DVT prophylaxis -Acute postprocedure blood loss anemia expected from surgery IV Ferrlecit x 2 -Chronic congestive heart failure-diastolic dysfunction, EF 55-60%. Stable Lasix 20 mg alternate day -Chronic bilateral lower external edema venous insufficiency -Morbid obesity BMI 45.6 Weight loss measures -Hyperlipidemia Lipitor 40 mg -Hypothyroid Synthroid 75 g a day -Essential hypertension Toprol-XL 25 mg a day Zestril 10 mg day. -Primary osteoarthritis in other joints Pain medication as needed -Full code Discussed with patient. Activity per Ortho. IV Ferrlecit. Thank you Dr. Thomas Past Medical History Past Medical History: Heart Failure, GERD/Reflux, Hearing Disorder / Deafness, Hyperlipidemia, Hypertension, Musculoskeletal Disorder, Osteoarthritis (OA), Sleep Apnea/CPAP/BIPAP, Thyroid Disorder Additional Past Medical History / Comment(s): Borderline Diabetic. Broken Heart Syndrome. Osteoporosis. SEASONAL ALLERGIES. Varicose veins. Poor circulation, full body edema. "Vein in right leg closes when I stand up and opens when I lay down". No CPAP use. "My left leg from toe to knee is red in the morning and gets better throughout the day." Mild hearing loss. History of Any Multi-Drug Resistant Organisms: None Reported Year Discovered:: 2004 MDRO Source:: vaginal area Past Surgical History: Joint Replacement Additional Past Surgical History / Comment(s): Right knee replacement, COLONOSCOPY. Past Anesthesia/Blood Transfusion Reactions: No Reported Reaction Past Psychological History: Anxiety, Depression Smoking Status: Former smoker Past Alcohol Use History: Rare Additional Past Alcohol Use History / Comment(s): Quit smoking April, smoked 35 yrs, 1-2ppd. Past Drug Use History: None Reported
[2024-11-05 07:41] VITALS: BP 150/63; PULSE 73; RESP 18; TEMP 97.4
--- NOTE | 2024-11-05 12:20 | P.DS ---
Providers Date of admission: 11/03/2024 Expected date of discharge: 11/05/24 Attending physician: Deuce Thomas Consults: 11/03/24 12:34 Consult Physician Routine Consulting Provider: Curt Brown Consult Reason/Comments: medical management s/p left total knee arthroplasty Do you want consulting provider notified?: Yes Primary care physician: Joan Astorga Hospital Course: Date of admission: 11/03/2024 Date of discharge: 11/05/2024 Admission diagnosis: Left knee osteoarthritis Discharge diagnosis: same Attending physician: Dr. Thomas Surgical procedures: Left total knee arthroplasty Brief history: Patient is a 74-year-old female with a history of progressive primary left knee osteoarthritis. At this point patient has failed conservative treatment measures and has opted to proceed with a elective left total knee arthroplasty. Hospital course: Details of patient's surgery can be found in operative report. Patient tolerated the procedure well and was subsequently transported to orthopedic floor. Patient's orthopeidc and medical care was provided daily. Patient had daily laboratory tests performed for evaluation of overall blood counts. Patient had daily physical therapy to include strengthening range of motion as well as education with walker ambulation. Patient was treated with Xarelto for their postoperative DVT prophylaxis during their inpatient stay. Patient was noted to have a relatively uneventful postoperative course. Patient reported satisfactory pain control with oral pain medications by postoperative day 2. Patient showed satisfactory progress with physical therapy. Patient moved steadily through the program and had no difficulty meeting the goals by postoperative day 2. Given patient's otherwise satisfactory course and having met physical therapy goals, plan is to discharge patient home with health services on postoperative day 2. Discharge condition/disposition: Patient will be discharged home with health services in stable condition. Discharge medications: Instructions are given on resumption of patient's normal daily medications per primary care recommendation, in addition patient will be prescribed [place]; senna; Eliquis 2.5 mg twice a day 2 weeks. Discharge instructions: 1. Wound care and infection precautions, keep incision dry and covered while showering, no lotions, creams, moisturizers. No soaking, tubs, pools, hottubs. Do not scrub over the incision. 2. Weight-bear as tolerated with walker / cane until follow-up. 3. Ice and elevate when necessary. Do not exceed 20 minutes per hour with ice pack. 4. Utilize compression sleeve until seen at first follow up appointment. 5. Visiting nursing care. 6. Home physical therapy including home CPM. 7. Pain meds and anticoagulants per prescription. 8. Pain medication has potential to cause constipation. Increase oral fluid and fiber intake. Contact primary care provider if you have not had a bowel movement within 48 hours after discharge 9. No anti-inflammatory medication until discussed at first post operative visit, this including Motrin, Aleve, Mobic, Diclofenac. 10. Follow up in office at 2 weeks postop with Harjinder Adams PA-C / Eliseo Alexander PA-C 11. Follow up with your primary care doctor 7-10 days after discharge. 12. Contact [facility] with any questions, . Assessment: Left knee osteoarthritis Procedures: Left total knee arthroplasty Patient Condition at Discharge: Good Plan - Discharge Summary Discharge Rx Participant: No New Discharge Prescriptions: New Apixaban [Eliquis] 2.5 mg PO BID #60 tab HYDROcodone/APAP 7.5-325MG [[place] 7.5-325] 1 tab PO Q6HR PRN #28 tab PRN Reason: Pain Sennosides/Docusate Sodium [Senna Plus 8.6-50 mg Softgel] 1 each PO DAILY #20 capsule No Action Levothyroxine Sodium [Synthroid] 75 mcg PO QAM Atorvastatin [Lipitor] 40 mg PO HS Cetirizine HCl [Zyrtec] 10 mg PO DAILY Cyclobenzaprine [Flexeril] 10 mg PO TID PRN PRN Reason: Leg Cramping Furosemide [Lasix] 20 mg PO Q48H traMADol HCL 50 mg PO Q12H PRN PRN Reason: Pain Esomeprazole Magnesium [NexIUM 24Hr] 20 mg PO DAILY Acetaminophen Tab [Tylenol Tab] 1,000 mg PO Q6HR PRN PRN Reason: Pain lisinopriL [Zestril] 10 mg PO QAM Metoprolol Succinate (ER) [Toprol XL] 25 mg PO BID Discharge Medication List Atorvastatin [Lipitor] 40 mg PO HS 03/30/15 [History] Levothyroxine Sodium [Synthroid] 75 mcg PO QAM 03/30/15 [History] Cetirizine HCl [Zyrtec] 10 mg PO DAILY 02/06/23 [History] Acetaminophen Tab [Tylenol Tab] 1,000 mg PO Q6HR PRN 10/30/24 [History] Cyclobenzaprine [Flexeril] 10 mg PO TID PRN 10/30/24 [History] Esomeprazole Magnesium [NexIUM 24Hr] 20 mg PO DAILY 10/30/24 [History] Furosemide [Lasix] 20 mg PO Q48H 10/30/24 [History] Metoprolol Succinate (ER) [Toprol XL] 25 mg PO BID 10/30/24 [History] lisinopriL [Zestril] 10 mg PO QAM 10/30/24 [History] traMADol HCL 50 mg PO Q12H PRN 10/30/24 [History] Apixaban [Eliquis] 2.5 mg PO BID #60 tab 11/05/24 [Rx] HYDROcodone/APAP 7.5-325MG [[place] 7.5-325] 1 tab PO Q6HR PRN #28 tab 11/05/24 [Rx] Sennosides/Docusate Sodium [Senna Plus 8.6-50 mg Softgel] 1 each PO DAILY #20 capsule 11/05/24 [Rx] Follow up Appointment(s)/Referral(s): Eliseo Alexander, JORDON [PHYSICIAN DYE OPERATOR] - 2 Weeks [facility] Visiting Nurse, [NON-STAFF] - As Needed Patient Instructions/Handouts: Knee Replacement (GEN) Activity/Diet/Wound Care/Special Instructions: Orthopedic Discharge Instructions: 1. Wound care and infection precautions, keep incision dry and covered while showering, no lotions, creams, moisturizers. No soaking, pools, hot tubs. Do not scrub over incision. 2. Weight-bear as tolerated with walker / cane until follow-up. 3. Ice and elevate when necessary. Do not exceed 20 minutes per hour with ice pack. 4. Utilize compression sleeve until seen at first follow up appointment. 5. Pain meds and anticoagulants per prescription. 6. Pain medication has potential to cause constipation. Increase oral fluid and fiber intake. Contact primary care provider if you have not had a bowel movement within 48 hours after discharge. 7. No anti-inflammatory medication until discussed at first post operative visit, this including Motrin, Aleve, Mobic, Diclofenac. 8. Follow up in office at 2 weeks postop with Harjinder Adams PA-C / Eliseo Alexander PA-C 9. Follow up with your primary care doctor 7-10 days after discharge. 10. Contact [facility] with any questions, . Keep incision clean, dry, intact. While showering, cover fusion tape with Saran wrap. Keep fusion tape on until follow-up appointment in office in 2 weeks. Discharge Disposition: HOME WITH HOME HEALTH SERVICES
--- NOTE | 2024-11-05 12:22 | P.PN ---
Subjective Progress Note Date: 11/05/24 Principal diagnosis: Left knee osteoarthritis Patient was seen at bedside this morning sitting up in chair with legs elevated and dressing present over left knee. Patient says physical therapy went better this morning and she is looking forward to going home today. Patient says her pain has been controlled well with oral medication. Patient says she has been urinating on her own since yesterday without issue. Patient states she does have a walker at home. Patient states no bowel movement yet, however, she does states she is passing gas. Patient denies any other issues at this time. Objective - Vital Signs Vital signs: Vital Signs Temp 97.4 F L 11/05/24 06:57 Pulse 73 11/05/24 09:06 Resp 18 11/05/24 09:06 BP 150/63 11/05/24 06:57 Pulse Ox 93 L 11/05/24 06:57 FiO2 Intake & Output 11/04/24 11/05/24 11/05/24 18:59 06:59 18:59 Output Total 100 425 Balance -100 -425 Output: Urine 100 425 Other: Voiding Method Toilet Toilet # Voids 3 1 - Exam Left knee: Incision is clean, dry, and intact. The exofin fusion tape is in good condition. There is minimal soft tissue swelling and ecchymosis surrounding the medial and lateral aspects of the incision. Calf is soft, no tenderness with palpation. Plantar flexion, dorsiflexion, EHL, FHL are intact. Sensory exam to light touch throughout the extremity is intact, dorsal pedis pulses 2+. - Labs CBC & Chem 7: 11/04/24 03:40 11/04/24 03:40 Assessment and Plan Assessment: 1. Left knee osteoarthritis -Postop day #2 status post left total knee arthroplasty Plan: 1. Left knee osteoarthritis -left total knee arthroplasty performed 11/03/2024 -left total knee arthroplasty. Patient stable bedside this morning with dressing present over left knee. Patient did work with therapy this morning and was able to walk up and down steps. Patient pain has been improving. Patient does have a walker for home. Discharge home today with health services. 2. Appreciate medical management 3. Pain management -[place]; Tylenol 4. DVT prophylaxis -Xarelto in hospital. Going home with Eliquis 2.5 mg twice a day 2 weeks 5. GI prophylaxis -senna 6. PT/OT -weightbearing as tolerated with walker 7. Encourage incentive spirometer use 8. Discharge planning -discharge home today with health services Time with Patient: Less than 30
--- NOTE | 2024-11-05 18:30 | P.PN ---
Progress Note - Text Progress Note Date: 11/05/24 - Chief Complaint Left knee surgery - History of Present Illness Pleasant 74-year-old patient, follows with Dr. Joan Astorga. Chronic medical conditions include congestive heart failure from toxic dysfunction EF 55 to 60%, GERD, decreased hearing, hypertension hyperlipidemia, osteoarthritis, obstructive sleep apnea, hypothyroid, osteoporosis, venous insufficiency. Patient is undergone left total knee arthroplasty. Currently pain controlled. No nausea vomiting. Propped in bed. Patient's and daughter at the bedside visiting. Denies any active cardiac symptoms. November 04: Seen this morning. Up in recliner. Pain well-controlled. Did tolerate some diet. No cardiac symptoms. Decrease in hemoglobin. IV Ferrlecit ordered. November 05: Patient received second unit of IV Ferrlecit today. Some pain at the operative site. To tolerate a meal. Did ambulate. Otherwise feeling well. No dizziness or lightheadedness. Questions answered. Follow-up with PCP upon discharge Medications reviewed Social history: Does have a walker. Smoked about 1 to 2 packs a day for 35 years stopped about 11 years ago. Alcohol rarely. Physical examination: VITAL SIGNS: 97.4, 73, 18, 150 x 63, 93% room air GENERAL: BMI 45.6, r up in a recliner EYES: Pupils equal. Conjunctiva prabhjot l. HEENT: External appearance of nose and ears normal, oral cavity grossly normal. NECK: JVD not raised; masses not palpable. HEART: First and second heart sounds are normal; no edema. LUNGS: Respiratory rate normal; clear to auscultation. ABDOMEN: Soft, nontender, liver spleen not palpable, no masses palpable. PSYCH: Alert and oriented x3; mood and affect prabhjot l. MUSCULOSKELETAL:No Clubbing/cyanosis;muscles-grossly intact. OA in joints. Dressing over the left knee. INVESTIGATIONS, reviewed in the clinical context: November 04: White count 13.1 hemoglobin 10.8 platelets 158 potassium 4.4 creatinine 0.78 Previous labs May 05, 2024: White count 8.7 hemoglobin 13 platelets 172 sodium 142 potassium 4.8 creatinine 0.8 Assessment and plan: -Left total knee arthroplasty Pain controlled. On Xarelto per orthopedics team for DVT prophylaxis -Acute postprocedure blood loss anemia expected from surgery IV Ferrlecit x 2 Ferrous sulfate for home -Chronic congestive heart failure-diastolic dysfunction, EF 55-60%. Stable Lasix 20 mg alternate day -Chronic bilateral lower external edema venous insufficiency -Morbid obesity BMI 45.6 Weight loss measures -Hyperlipidemia Lipitor 40 mg -Hypothyroid Synthroid 75 g a day -Essential hypertension Toprol-XL 25 mg a day Zestril 10 mg day. -Primary osteoarthritis in other joints Pain medication as needed -Full code Discussed with patient . Follow-up with PCP upon discharge Thank you Dr. Thomas Past Medical History Past Medical History: Heart Failure, GERD/Reflux, Hearing Disorder / Deafness, Hyperlipidemia, Hypertension, Musculoskeletal Disorder, Osteoarthritis (OA), Sleep Apnea/CPAP/BIPAP, Thyroid Disorder Additional Past Medical History / Comment(s): Borderline Diabetic. Broken Heart Syndrome. Osteoporosis. SEASONAL ALLERGIES. Varicose veins. Poor circulation, full body edema. "Vein in right leg closes when I stand up and opens when I lay down". No CPAP use. "My left leg from toe to knee is red in the morning and gets better throughout the day." Mild hearing loss. History of Any Multi-Drug Resistant Organisms: None Reported Year Discovered:: 2004 MDRO Source:: vaginal area Past Surgical History: Joint Replacement Additional Past Surgical History / Comment(s): Right knee replacement, COLONOSCOPY. Past Anesthesia/Blood Transfusion Reactions: No Reported Reaction Past Psychological History: Anxiety, Depression Smoking Status: Former smoker Past Alcohol Use History: Rare Additional Past Alcohol Use History / Comment(s): Quit smoking April, smoked 35 yrs, 1-2ppd. Past Drug Use History: None Reported
== END 2024-11-05 16:07 | disposition home health service (06) ==
LOC: OR 08:12 → 4SSUR 12:39 → OR 11-05 16:07
PROVIDERS: ATTEND Orthopaedic Surgery
DX: M17.12 Unilateral primary osteoarthritis, left knee (principal); I11.0 Hypertensive heart disease with heart failure; I50.32 Chronic diastolic (congestive) heart failure; K21.9 Gastro-esophageal reflux disease without esophagitis; E78.5 Hyperlipidemia, unspecified; G47.33 Obstructive sleep apnea (adult) (pediatric); E11.9 Type 2 diabetes mellitus without complications; I89.0 Lymphedema, not elsewhere classified; M81.0 Age-related osteoporosis without current pathological fracture; Z87.891 Personal history of nicotine dependence; Z82.49 Family history of ischemic heart disease and other diseases of the circulatory system; Z79.890 Hormone replacement therapy; Z79.02 Long term (current) use of antithrombotics/antiplatelets; Z79.01 Long term (current) use of anticoagulants; Z79.899 Other long term (current) drug therapy
CPT/HCPCS: 97161; 64999; 64448; 80048; 85025; 73560; 27447; C1713 ×2; C1776; C1751; J2250; J1100; J0690 ×3; J2405; J3010; J2916; J2795